=== PATIENT | female | born 1940 | race Caucasian/White ===

== ENCOUNTER 2022-09-30 06:06 | Emergency (ER) | payer MEDICARE, OTHER ==
[2022-09-30] MEDS ORDERED: amLODIPine 5 MG (NORVASC) TAB PO ONE (06:45)
[2022-09-30] MEDS ORDERED: TETANUS,DIPTH,PERTUSS P/F (BOOSTRIX) 0.5 ML VIAL IM ONE (06:45)
[2022-09-30 07:06] LABS: BASOPHILS # (AUTO) 0.1 10^3/uL (0.0-0.1); BASOPHILS % (AUTO) 1 % (0-10); EOSINOPHILS # (AUTO) 0.2 10^3/uL (0.0-0.3); EOSINOPHILS % (AUTO) 3 % (0-10); HEMATOCRIT 39 % (35-52); LYMPHOCYTES # (AUTO) 1.1 10^3/uL (1.0-4.0); LYMPHOCYTES % (AUTO) 22 % (12-44); MEAN CORPUSCULAR HEMOGLOBIN 31 pg (25-34); MEAN CORPUSCULAR HGB CONC 33 g/dL (32-36); MEAN CORPUSCULAR VOLUME 94 fL (80-99); MONOCYTES # (AUTO) 0.5 10^3/uL (0.0-1.0); MONOCYTES % (AUTO) 10 % (0-12); NEUTROPHILS # (AUTO) 3.2 10^3/uL (1.8-7.8); NEUTROPHILS % (AUTO) 64 % (42-75); PLATELET COUNT 188 10^3/uL (130-400)
[2022-09-30 07:08] LABS: BILIRUBIN,URINE NEGATIVE (NEGATIVE); CLARITY,URINE CLEAR; COLOR,URINE YELLOW; GLUCOSE, URINE (UA) NEGATIVE (NEGATIVE); KETONES,URINE NEGATIVE (NEGATIVE); LEUKOCYTE ESTERASE ,URINE NEGATIVE (NEGATIVE); NITRITE,URINE NEGATIVE (NEGATIVE); PH,URINE 7.5 (5-9); PROTEIN,URINE NEGATIVE (NEGATIVE)
[2022-09-30 07:14] LABS: POTASSIUM 3.9 MMOL/L (3.6-5.0)
[2022-09-30 07:15] LABS: CALCIUM 9.2 MG/DL (8.5-10.1)
[2022-09-30 07:16] LABS: TOTAL PROTEIN 6.6 GM/DL (6.4-8.2)
[2022-09-30 07:16] LABS: BACTERIA,URINE NEGATIVE /HPF
[2022-09-30 07:18] LABS: BILIRUBIN,TOTAL 0.9 MG/DL (0.1-1.0)
[2022-09-30 07:20] LABS: CREATININE SERUM 0.77 MG/DL (0.60-1.30)
[2022-09-30 07:23] LABS: MAGNESIUM 2.2 MG/DL (1.6-2.4)
--- NOTE | 2022-09-30 07:29 | Diagnostic Imaging Report ---
EXAMINATION: CT head and CT cervical spine without contrast. TECHNIQUE: Multiple contiguous axial images were obtained through the brain and cervical spine without the use of intravenous contrast. Sagittal and coronal reformations through the cervical spine were then performed. All CT scans use one or more of the following dose optimizing techniques: automated exposure control, MA and/or KvP adjustment based on patient size and exam type or iterative reconstruction. HISTORY: Head and neck pain after injury. COMPARISON: None available. FINDINGS: HEAD: Mild diffuse cerebral volume loss with proportional enlargement of the ventricles and sulci. Moderate hypodensities throughout the supratentorial white matter of both cerebral hemispheres. No acute intracranial hemorrhage or abnormal extra-axial fluid collections are present. Calcification of the intracranial ICAs. No hyperdense vessel. The calvarium is intact. The mastoid air cells are clear. The visualized paranasal sinuses are clear. The orbits are normal. C-SPINE: Vertebral body height and alignment are preserved. No acute fracture, dislocation, or destructive osseous process. There is multilevel facet hypertrophy without perched facets. There is multilevel cervical spondylosis. The paraspinous soft tissues are normal. The visualized thyroid gland is normal. The visualized lung apices are normal. IMPRESSION: 1. No acute intracranial abnormality. Chronic microangiopathy and volume loss. 2. Degenerative changes of the cervical spine without acute osseous abnormality. Dictated by: Dictated on workstation # [email or web address] - It's what's in [id number]
--- NOTE | 2022-09-30 07:37 | ED Fall/Injury ---
General Chief Complaint: Trauma-Non Activation Stated Complaint: FALL - L EYE LAC - L SHOULDER PAIN Nursing Triage Note: PT AMBULATORY INTO ER VIA PRIVATE VEHICLE FROM [facility]. PATIENT WAS SITTING ON COUCH AND WENT TO GET UP AND FELL FORWARD HITTING TABLE. PATIENT HAS SMALL LACERATION JUST ABOVE LEFT EYE, AND IS ALSO COMPLAINING OF LEFT KNEE AND SHOULDER PAIN. NO LOSS OF CONSCIOUSNESS. PT IS NOT ON BLOOD THINNERS. 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 oz. kg; BMI Method: Progress/Results/Core Measures Results/Orders Lab Results Laboratory Tests Test 09/30/22 06:54 09/30/22 06:56 Range/Units White Blood Count 5.0 4.3-11.0 10^3/uL Red Blood Count 4.15 3.80-5.11 10^6/uL Hemoglobin 13.0 11.5-16.0 g/dL Hematocrit 39 35-52 % Mean Corpuscular Volume 94 80-99 fL Mean Corpuscular Hemoglobin 31 25-34 pg Mean Corpuscular Hemoglobin Concent 33 32-36 g/dL Red Cell Distribution Width 12.8 10.0-14.5 % Platelet Count 188 130-400 10^3/uL Mean Platelet Volume 10.0 9.0-12.2 fL Immature Granulocyte % (Auto) 0 % Neutrophils (%) (Auto) 64 42-75 % Lymphocytes (%) (Auto) 22 12-44 % Monocytes (%) (Auto) 10 0-12 % Eosinophils (%) (Auto) 3 0-10 % Basophils (%) (Auto) 1 0-10 % Neutrophils # (Auto) 3.2 1.8-7.8 10^3/uL Lymphocytes # (Auto) 1.1 1.0-4.0 10^3/uL Monocytes # (Auto) 0.5 0.0-1.0 10^3/uL Eosinophils # (Auto) 0.2 0.0-0.3 10^3/uL Basophils # (Auto) 0.1 0.0-0.1 10^3/uL Immature Granulocyte # (Auto) 0.0 0.0-0.1 10^3/uL Sodium Level 144 135-145 MMOL/L Potassium Level 3.9 3.6-5.0 MMOL/L Chloride Level 107 98-107 MMOL/L Carbon Dioxide Level 25 21-32 MMOL/L Anion Gap 12 5-14 MMOL/L Blood Urea Nitrogen 16 7-18 MG/DL Creatinine 0.77 0.60-1.30 MG/DL Estimat Glomerular Filtration Rate 76 BUN/Creatinine Ratio 21 Glucose Level 90 70-105 MG/DL Calcium Level 9.2 8.5-10.1 MG/DL Corrected Calcium 9.2 8.5-10.1 MG/DL Magnesium Level 2.2 1.6-2.4 MG/DL Total Bilirubin 0.9 0.1-1.0 MG/DL Aspartate Amino Transf (AST/SGOT) 15 5-34 U/L Alanine Aminotransferase (ALT/SGPT) 9 0-55 U/L Alkaline Phosphatase 75 40-136 U/L Total Protein 6.6 6.4-8.2 GM/DL Albumin 4.0 3.2-4.5 GM/DL Urine Color YELLOW Urine Clarity CLEAR Urine pH 7.5 5-9 Urine Specific [place] 1.010 L 1.016-1.022 Urine Protein NEGATIVE NEGATIVE Urine Glucose (UA) NEGATIVE NEGATIVE Urine Ketones NEGATIVE NEGATIVE Urine Nitrite NEGATIVE NEGATIVE Urine Bilirubin NEGATIVE NEGATIVE Urine Urobilinogen 0.2 < = 1.0 MG/DL Urine Leukocyte Esterase NEGATIVE NEGATIVE Urine RBC (Auto) NEGATIVE NEGATIVE Urine RBC NONE /HPF Urine WBC NONE /HPF Urine Squamous Epithelial Cells NONE /HPF Urine Crystals NONE /LPF Urine Bacteria NEGATIVE /HPF Urine Casts NONE /LPF Urine Mucus NEGATIVE /LPF Urine Culture Indicated NO My Orders Orders - EVE LINDSEY MD Shoulder, Left, 3 Views (09/30/22 06:38) Knee, Right, 3 Views (09/30/22 06:38) Ct Head/Cervical Spine Wo (09/30/22 06:38) Cbc With Automated Diff (09/30/22 06:38) Comprehensive Metabolic Panel (09/30/22 06:38) Magnesium (09/30/22 06:38) Ua Culture If Indicated (09/30/22 06:38) Dipht,Pertuss(Acell),Tet Adult (Boostrix (09/30/22 06:45) Medications Given in ED Current Medications Medications Dose Ordered Sig/Abbey Route Start Time Stop Time Status Last Admin Dose Admin Diphtheria/ Tetanus/Acell Pertussis 0.5 ml ONCE ONCE IM 09/30/22 06:45 09/30/22 06:46 DC 09/30/22 07:33 0.5 ML Vital Signs/I&O 09/30/22 09/30/22 06:14 07:18 Pulse 80 80 Resp 18 18 B/P (MAP) 198/100 (132) 198/100 (132) Pulse Ox 97 97 O2 Delivery Room Air Room Air Blood Pressure Mean: 132 Diagnostic Imaging Diagonstic Imaging: CT Plain Films/CT/US/NM/MRI: c-spine, head Comments CT head and C-spine viewed by me and report reviewed. See report below: NAME: SAGRARIO BOBO I [facility] REC#: [id number] PT STATUS: REG ER : 1940 PHYSICIAN: EVE LINDSEY MD ADMIT DATE: 09/30/22/ER Draft Date of Exam:09/30/22 CT HEAD/CERVICAL SPINE WO EXAMINATION: CT head and CT cervical spine without contrast. TECHNIQUE: Multiple contiguous axial images were obtained through the brain and cervical spine without the use of intravenous contrast. Sagittal and coronal reformations through the cervical spine were then performed. All CT scans use one or more of the following dose optimizing techniques: automated exposure control, MA and/or KvP adjustment based on patient size and exam type or iterative reconstruction. HISTORY: Head and neck pain after injury. COMPARISON: None available. FINDINGS: HEAD: Mild diffuse cerebral volume loss with proportional enlargement of the ventricles and sulci. Moderate hypodensities throughout the supratentorial white matter of both cerebral hemispheres. No acute intracranial hemorrhage or abnormal extra-axial fluid collections are present. Calcification of the intracranial ICAs. No hyperdense vessel. The calvarium is intact. The mastoid air cells are clear. The visualized paranasal sinuses are clear. The orbits are normal. C-SPINE: Vertebral body height and alignment are preserved. No acute fracture, dislocation, or destructive osseous process. There is multilevel facet hypertrophy without perched facets. There is multilevel cervical spondylosis. The paraspinous soft tissues are normal. The visualized thyroid gland is normal. The visualized lung apices are normal. IMPRESSION: 1. No acute intracranial abnormality. Chronic microangiopathy and volume loss. 2. Degenerative changes of the cervical spine without acute osseous abnormality. Dictated on workstation # [id number] Dict: 09/30/22725 Trans: 09/30/22728 CV [id number] Interpreted by: MANUEL DANGELO DO Departure Impression Primary Impression: Fall on same level Qualified Codes: W18.30XA - Fall on same level, unspecified, initial encounter Additional Impressions: Facial abrasion Qualified Codes: S00.81XA - Abrasion of other part of head, initial encounter Left shoulder pain Qualified Codes: M25.512 - Pain in left shoulder Right knee pain Qualified Codes: M25.561 - Pain in right knee Hypertension Qualified Codes: I10 - Essential (primary) hypertension Disposition: 01 HOME, SELF-CARE Condition: Improved Departure-Patient Inst. Decision time for Depature: 08:19 Referrals: PEYTON HERRERA DO (PCP/Family) Primary Care Physician Patient Instructions: High Blood Pressure ED, Preventing Falls in Older Adults Add. Discharge Instructions: Please follow-up with your primary care provider regarding pain from your injuries today and unsteadiness. Please schedule an appointment as soon as possible. Monitor blood pressure today. Check once this morning and again this afternoon. If systolic blood pressure remains above 160 or diastolic pressure above 100, please contact your primary care provider or return to the emergency room. Return to the emergency room if there are any other worsening conditions. Imaging studies and labs were unremarkable today. Use Tylenol (acetaminophen) up to 1000 mg every 6 hours as needed for pain. Sore areas may be iced and 20-minute intervals as well. All discharge instructions reviewed with patient and/or family. Voiced understanding. EVE LINDSEY MD Sep 30, 2022 07:37
--- NOTE | 2022-09-30 07:48 | Diagnostic Imaging Report ---
EXAMINATION: Right knee radiograph EXAM DATE: 09/30/2022 7:34 AM COMPARISON: None available. HISTORY: Right knee pain TECHNIQUE: 3 views FINDINGS: There is no acute fracture, dislocation, or destructive osseous process. There is severe medial compartment joint space narrowing and small osteophytes. The soft tissues are normal. IMPRESSION: 1. Degenerative changes of the medial compartment of the right knee without acute osseous abnormality. Dictated by: Dictated on workstation # [id number]
--- NOTE | 2022-09-30 07:51 | Diagnostic Imaging Report ---
EXAMINATION: Left shoulder radiograph EXAM DATE: 09/30/2022 7:34 AM COMPARISON: None available. HISTORY: Left shoulder pain TECHNIQUE: 3 views FINDINGS: There is no acute fracture, dislocation, or destructive osseous process. The joint spaces are normal. The soft tissues are normal. IMPRESSION: 1. No acute osseous abnormality. Dictated by: Dictated on workstation # [id number]
[2022-09-30 08:31] VITALS: BP 176/97
== END 2022-09-30 08:31 | disposition home or self-care (01) ==
LOC: ER 06:08
DX: S00.81XA Abrasion of other part of head, initial encounter (principal); M25.512 Pain in left shoulder; M25.561 Pain in right knee; I10 Essential (primary) hypertension; Z23 Encounter for immunization; W18.30XA Fall on same level, unspecified, initial encounter; W22.8XXA Striking against or struck by other objects, initial encounter
CPT/HCPCS: 36415; 70450; 72125; 73030; 73562; 80053; 81000; 83735; 85025; 90715

== ENCOUNTER 2023-05-17 03:19 | Emergency (ER) | payer MEDICARE ==
[~2023-05-17] VITALS: Ht 167.7 cm; Wt 77.1 kg
[2023-05-17 03:19] VITALS: BP 163/105
--- NOTE | 2023-05-17 05:40 | ED Fall/Injury ---
General Chief Complaint: Trauma-Non Activation Stated Complaint: FALL Nursing Triage Note: PT TO RM 6 VIA [facility] FROM [facility]. PT FELL OUT OF BED AND HIT FACE ON ROCKING CHAIR AT APPROX 0227 THIS AM, UNWITNESSED FALL. PT DENIES PAIN, A&OX4. Source: patient Exam Limitations: no limitations (EVE LINDSEY MD) History of Present Illness Date Seen by Provider: May 17, 2023 Time Seen by Provider: 03:22 Initial Comments This 83-year-old woman presents to the emergency room via [facility] from [facility] after having an unwitnessed fall. Patient is unsure of what caused the fall and is not certain of what she struck her head on. She does have bruising and swelling of the nose. She has dried blood in and around her nose. She is alert and oriented. She is able to briskly answer questions appropriately. She denies any injury elsewhere. Staff reports she is up-to-date on immunizations Location Injury Occurred: [facility] (EVE LINDSEY MD) Allergies and Home Medications Allergies Coded Allergies: No Known Drug Allergies (Unverified , 09/30/22) Patient Home Medication List Home Medication List Reviewed: Yes (EVE LINDSEY MD) Review of Systems Review of Systems Constitutional: no symptoms reported Eyes: No Symptoms Reported Ears, Nose, Mouth, Throat: see HPI Respiratory: no symptoms reported Cardiovascular: no symptoms reported Gastrointestinal: no symptoms reported Genitourinary: no symptoms reported Musculoskeletal: no symptoms reported Skin: no symptoms reported Psychiatric/Neurological: No Symptoms Reported (EVE LINDSEY MD) Past Zvrtauo-Kfavjg-Uayqqr Hx Patient Social History Tobacco Use?: No Use of E-Cig and/or Vaping dev: No Substance use?: No Alcohol Use?: No (EVE LINDSEY MD) Past Medical History Surgeries: No (Unknown) Respiratory: No Cardiac: Yes Hypertension Neurological: Yes Dementia Genitourinary: No Gastrointestinal: No Musculoskeletal: No Endocrine: No HEENT: No Cancer: No Psychosocial: No Integumentary: No (EVE LINDSEY MD) Physical Exam Vital Signs Vital Signs - First Documented 05/17/23 03:19 Temp 36.7 Pulse 89 Resp 18 B/P (MAP) 163/105 (124) Pulse Ox 95 O2 Delivery Room Air (ELAN HAIR MD) Vital Signs Capillary Refill : Less Than 3 Seconds (EVE LINDSEY MD) Height, Weight, BMI Height: '" Weight: lbs. oz. kg; 27.00 BMI Method: General Appearance: WD/WN, no apparent distress HEENT: PERRL/EOMI, normal ENT inspection, other (Epistaxis without septal h ematoma. Dried blood in the naris without active bleeding. Swelling and ecchymosis of the nose.) Neck: non-tender, normal inspection Cardiovascular: regular rate, rhythm, no edema, no murmur Respiratory: lungs clear, normal breath sounds, no respiratory distress Gastrointestinal: normal bowel sounds, non tender, soft Extremities: non-tender, normal inspection, no pedal edema Neurologic/Psychiatric: alert, normal mood/affect, oriented x 3 Skin: normal color, ecchymosis (EVE LINDSEY MD) Hope Coma Score Best Eye Response: (4) Open Spontaneously Best Verbal Response: (5) Oriented Best Motor Response: (6) Obeys Commands Hope Total: 15 (EVE LINDSEY MD) Progress/Results/Core Measures Results/Orders Lab Results Laboratory Tests Test 05/17/23 05:44 05/17/23 05:46 Range/Units Urine Color YELLOW Urine Clarity CLEAR Urine pH 6.5 5-9 Urine Specific [place] 1.010 L 1.016-1.022 Urine Protein NEGATIVE NEGATIVE Urine Glucose (UA) NEGATIVE NEGATIVE Urine Ketones NEGATIVE NEGATIVE Urine Nitrite NEGATIVE NEGATIVE Urine Bilirubin NEGATIVE NEGATIVE Urine Urobilinogen 0.2 < = 1.0 MG/DL Urine Leukocyte Esterase 1+ H NEGATIVE Urine RBC (Auto) NEGATIVE NEGATIVE Urine RBC NONE /HPF Urine WBC 0-2 /HPF Urine Squamous Epithelial Cells RARE /HPF Urine Crystals NONE /LPF Urine Bacteria TRACE /HPF Urine Casts PRESENT /LPF Urine Hyaline Casts RARE /LPF Urine Mucus NEGATIVE /LPF Urine Culture Indicated NO White Blood Count 9.7 4.3-11.0 10^3/uL Red Blood Count 4.53 3.80-5.11 10^6/uL Hemoglobin 14.4 11.5-16.0 g/dL Hematocrit 44 35-52 % Mean Corpuscular Volume 97 80-99 fL Mean Corpuscular Hemoglobin 32 25-34 pg Mean Corpuscular Hemoglobin Concent 33 32-36 g/dL Red Cell Distribution Width 12.7 10.0-14.5 % Platelet Count 235 130-400 10^3/uL Mean Platelet Volume 10.7 9.0-12.2 fL Immature Granulocyte % (Auto) 0 % Neutrophils (%) (Auto) 76 H 42-75 % Lymphocytes (%) (Auto) 15 12-44 % Monocytes (%) (Auto) 7 0-12 % Eosinophils (%) (Auto) 2 0-10 % Basophils (%) (Auto) 1 0-10 % Neutrophils # (Auto) 7.3 1.8-7.8 10^3/uL Lymphocytes # (Auto) 1.5 1.0-4.0 10^3/uL Monocytes # (Auto) 0.7 0.0-1.0 10^3/uL Eosinophils # (Auto) 0.2 0.0-0.3 10^3/uL Basophils # (Auto) 0.1 0.0-0.1 10^3/uL Immature Granulocyte # (Auto) 0.0 0.0-0.1 10^3/uL Prothrombin Time 12.7 12.2-14.7 SEC INR Comment 0.9 0.8-1.4 Activated Partial Thromboplast Time 29 24-35 SEC Sodium Level 143 135-145 MMOL/L Potassium Level 4.4 3.6-5.0 MMOL/L Chloride Level 109 H 98-107 MMOL/L Carbon Dioxide Level 25 21-32 MMOL/L Anion Gap 9 5-14 MMOL/L Blood Urea Nitrogen 21 H 7-18 MG/DL Creatinine 0.84 0.60-1.30 MG/DL Estimat Glomerular Filtration Rate 68 BUN/Creatinine Ratio 25 Glucose Level 98 70-105 MG/DL Calcium Level 8.9 8.5-10.1 MG/DL Corrected Calcium 8.7 8.5-10.1 MG/DL Total Bilirubin 0.5 0.1-1.0 MG/DL Aspartate Amino Transf (AST/SGOT) 13 5-34 U/L Alanine Aminotransferase (ALT/SGPT) 6 0-55 U/L Alkaline Phosphatase 80 40-136 U/L Total Protein 6.8 6.4-8.2 GM/DL Albumin 4.2 3.2-4.5 GM/DL (ELAN HAIR MD) My Orders Orders - ELAN HAIR MD Labetalol Injection (Normodyne Injection (05/17/23 06:45) (ELAN HAIR MD) Medications Given in ED Current Medications Medications Dose Ordered Sig/Abbey Route Start Time Stop Time Status Last Admin Dose Admin Labetalol HCl 20 mg ONCE ONCE IV 05/17/23 06:45 05/17/23 06:46 DC 05/17/23 06:46 20 MG (ELAN HAIR MD) Vital Signs/I&O 05/17/23 03:19 Temp 36.7 Pulse 89 Resp 18 B/P (MAP) 163/105 (124) Pulse Ox 95 O2 Delivery Room Air (ELAN HAIR MD) Blood Pressure Mean: 124 Progress Progress Note #1: Time: 05:[address] was viewed by me. I appreciated a nasal fracture but no acute intracranial injury. However, I received a call from the radiologist at 05:12 with report that there was a trace left parietal subarachnoid hemorrhage. I discussed options with the patient. She stated she may want to proceed with surgery if needed should she decompensate. We are therefore pursuing transfer to a neurosurgical facility. [facility] does not have neurosurgical capability through the weekend. I am now trying [facility]. Patient remains neurologically intact. Progress Note #2: Time: 05:50 Progress Note I spoke with Dr. Giles, neurosurgeon at [facility] in [place]. He accepts the case in consultation. Patient will be transferred to the emergency room. (EVE LINDSEY MD) Progress Note : Progress Note 0645: Patient pending transfer for possible small subarachnoid hemorrhage. BP is 170s systolic so we will go ahead and initiate labetalol 20 mg IV now. Patient does have some confusion but otherwise is resting comfortably. 0715: Our radiologist have read the films and do not appreciate any significant subarachnoid hemorrhage. I have reviewed the films myself and I also do not appreciate any significant intracranial hemorrhage. I did speak with patient's daughter who is the DPOA and we discussed the radiology findings. Patient does have advancing dementia. Daughter would not want a surgical option for this patient. Patient does get paranoid and also gets confused and upset outside of her normal environment. Given that the findings are not significant for significant hemorrhage of any sort and that she would not want surgery, further transfer and neurosurgical evaluation are not indicated. Overall the daughter is comfortable with the patient going back to the facility and so am I and we will talk with the facility director about this. 0721: Facility director has been notified and agrees. Patient will go back to facility and resume current medications and care. [facility] has been notified of cancellation of transfer status. Discharged back to facility with return precautions given to facility provider relations representative. Patient's daughter agrees to plan. Daughter is aware of the mild nasal bone fracture. (ELAN HAIR MD) Diagnostic Imaging Diagonstic Imaging: CT Plain Films/CT/US/NM/MRI: facial bones, head Comments CT head and facial bones viewed by me. I appreciated the nasal fracture. I received a call from the radiologist reporting a trace subarachnoid hemorrhage in the left parietal region. This was appreciated on my further review of the imaging. Nasal fractures were noted. No other acute abnormalities were appreciated. (EVE LINDSEY MD) Diagonstic Imaging: CT Plain Films/CT/US/NM/MRI: facial bones, head Comments [facility] [place] NAME: SAGRARIO BOBO I [facility] REC#: [id number] PT STATUS: REG ER : 1940 PHYSICIAN: EVE LINDSEY MD ADMIT DATE: 05/17/23/ER Draft Date of Exam:05/17/23 CT HEAD/MAXILLOFACIAL WO EXAMINATION: CT head and face without contrast. TECHNIQUE: Multiple contiguous axial images were obtained through the face and brain without the use of intravenous contrast. All CT scans use one or more of the following dose optimizing techniques: automated exposure control, MA and/or KvP adjustment based on patient size and exam type or iterative reconstruction. HISTORY: Head and face injury. COMPARISON: None available. FINDINGS: The traore-white matter differentiation is normal. No mass effect or midline shift. There is age related cerebral atrophy with ex vacuo dilation of the ventricles. Periventricular white matter hypoattenuation is in keeping with chronic small vessel ischemic changes. Basilar cisterns are patent. There are no intra- or extra-axial fluid collections. There is no intracranial hemorrhage. The orbits are normal. Paranasal sinuses are normal. Mastoid air cells are clear. No soft tissue abnormality is seen. No osseus lesions or fractures are seen. There is an mildly impacted nasal bone fracture. Mandible and maxillae are normal. Zygomatic arches are normal. Pterygoid plates are normal. No soft tissue abnormality is seen. IMPRESSION: 1. No acute intracranial abnormality. 2. Mildly impacted nasal bone fracture. Dictated on workstation # [id number] Dict: 05/17/23 0608 Trans: 05/17/23 0654 [id number] Interpreted by: DEEPTI HONG MD Electronically signed by: (ELAN HAIR MD) Departure Impression Primary Impression: Head injury Qualified Codes: S09.90XA - Unspecified injury of head, initial encounter Additional Impressions: Fall on same level Qualified Codes: W18.30XA - Fall on same level, unspecified, initial encounter Nasal fracture Qualified Codes: S02.2XXA - Fracture of nasal bones, initial encounter for closed fracture Disposition: 01 HOME, SELF-CARE Condition: Stable Departure-Patient Inst. Decision time for Depature: 07:25 (ELAN HAIR MD) Referrals: YASMIN WARE MD, JACQUELINE S DO (PCP/Family) Primary Care Physician Patient Instructions: Head Injury in Adults (DC), Nose fracture Add. Discharge Instructions: All discharge instructions reviewed with patient and/or family. Voiced understanding. You may follow-up with your doctor for recheck and further evaluation this week. There is a mild nasal fracture. Due to this, you may follow-up with Dr. Ware for recheck and further evaluation as needed. This should heal up on its own without difficulty as well. Continue home medications as previously prescribed. Continue previous diet. Return for worse pain, vomiting, vision or balance problems, significant change in mental status or other concerns as needed. EVE LINDSEY MD May 17, 2023 05:40 ELAN HAIR MD May 17, 2023 07:17
[2023-05-17 05:52] LABS: BASOPHILS # (AUTO) 0.1 10^3/uL (0.0-0.1); BASOPHILS % (AUTO) 1 % (0-10); EOSINOPHILS # (AUTO) 0.2 10^3/uL (0.0-0.3); EOSINOPHILS % (AUTO) 2 % (0-10); HEMATOCRIT 44 % (35-52); HEMOGLOBIN 14.4 g/dL (11.5-16.0); LYMPHOCYTES # (AUTO) 1.5 10^3/uL (1.0-4.0); LYMPHOCYTES % (AUTO) 15 % (12-44); MEAN CORPUSCULAR HEMOGLOBIN 32 pg (25-34); MEAN CORPUSCULAR HGB CONC 33 g/dL (32-36); MEAN CORPUSCULAR VOLUME 97 fL (80-99); MEAN PLATELET VOLUME 10.7 fL (9.0-12.2); MONOCYTES # (AUTO) 0.7 10^3/uL (0.0-1.0); MONOCYTES % (AUTO) 7 % (0-12); NEUTROPHILS # (AUTO) 7.3 10^3/uL (1.8-7.8); NEUTROPHILS % (AUTO) 76 % (42-75); PLATELET COUNT 235 10^3/uL (130-400); WHITE BLOOD COUNT 9.7 10^3/uL (4.3-11.0)
[2023-05-17 05:53] LABS: BILIRUBIN,URINE NEGATIVE (NEGATIVE); CLARITY,URINE CLEAR; COLOR,URINE YELLOW; GLUCOSE, URINE (UA) NEGATIVE (NEGATIVE); KETONES,URINE NEGATIVE (NEGATIVE); LEUKOCYTE ESTERASE ,URINE 1+ (NEGATIVE); NITRITE,URINE NEGATIVE (NEGATIVE); PH,URINE 6.5 (5-9); PROTEIN,URINE NEGATIVE (NEGATIVE)
[2023-05-17 06:14] LABS: INR 0.9 (0.8-1.4); PROTHROMBIN TIME PATIENT 12.7 SEC (12.2-14.7)
[2023-05-17 06:17] LABS: BACTERIA,URINE TRACE /HPF; HYALINE CASTS, URINE RARE /LPF; SQUAMOUS EPITHELIAL CELL,UR RARE /HPF; WBC,URINE 0-2 /HPF
[2023-05-17 06:25] LABS: ALBUMIN 4.2 GM/DL (3.2-4.5); POTASSIUM 4.4 MMOL/L (3.6-5.0)
[2023-05-17 06:26] LABS: CALCIUM 8.9 MG/DL (8.5-10.1)
[2023-05-17 06:27] LABS: TOTAL PROTEIN 6.8 GM/DL (6.4-8.2)
[2023-05-17 06:29] LABS: BILIRUBIN,TOTAL 0.5 MG/DL (0.1-1.0)
[2023-05-17 06:31] LABS: CREATININE SERUM 0.84 MG/DL (0.60-1.30)
[2023-05-17] MEDS ORDERED: LABETALOL HCL 20 MG/4 ML VIAL IV ONE (06:45)
--- NOTE | 2023-05-17 06:54 | Diagnostic Imaging Report ---
EXAMINATION: CT head and face without contrast. TECHNIQUE: Multiple contiguous axial images were obtained through the face and brain without the use of intravenous contrast. All CT scans use one or more of the following dose optimizing techniques: automated exposure control, MA and/or KvP adjustment based on patient size and exam type or iterative reconstruction. HISTORY: Head and face injury. COMPARISON: None available. FINDINGS: The traore-white matter differentiation is normal. No mass effect or midline shift. There is age related cerebral atrophy with ex vacuo dilation of the ventricles. Periventricular white matter hypoattenuation is in keeping with chronic small vessel ischemic changes. Basilar cisterns are patent. There are no intra- or extra-axial fluid collections. There is no intracranial hemorrhage. The orbits are normal. Paranasal sinuses are normal. Mastoid air cells are clear. No soft tissue abnormality is seen. No osseus lesions or fractures are seen. There is an mildly impacted nasal bone fracture. Mandible and maxillae are normal. Zygomatic arches are normal. Pterygoid plates are normal. No soft tissue abnormality is seen. IMPRESSION: 1. No acute intracranial abnormality. 2. Mildly impacted nasal bone fracture. Dictated by: Dictated on workstation # [id number]
== END 2023-05-17 07:42 | disposition home or self-care (01) ==
LOC: EDUNIT# 03:19 → ER 03:22
DX: S09.90XA Unspecified injury of head, initial encounter (principal); S02.2XXA Fracture of nasal bones, initial encounter for closed fracture; W06.XXXA Fall from bed, initial encounter; W22.03XA Walked into furniture, initial encounter; Y92.129 Unspecified place in nursing home as the place of occurrence of the external cause
CPT/HCPCS: 36415; 70450; 70486; 80053; 81000; 85025; 85610; 85730

== ENCOUNTER 2023-07-27 18:05 | Observation (INO) | payer MEDICARE ==
[~2023-07-27] VITALS: Ht 172 cm; Wt 65.3 kg
[2023-07-27 18:34] LABS: BASOPHILS % (AUTO) 0 % (0-10); EOSINOPHILS % (AUTO) 0 % (0-10); HEMATOCRIT 40 % (35-52); HEMOGLOBIN 13.1 g/dL (11.5-16.0); LYMPHOCYTES # (AUTO) 0.5 10^3/uL (1.0-4.0); LYMPHOCYTES % (AUTO) 11 % (12-44); MEAN CORPUSCULAR HEMOGLOBIN 31 pg (25-34); MEAN CORPUSCULAR HGB CONC 32 g/dL (32-36); MEAN CORPUSCULAR VOLUME 97 fL (80-99); MEAN PLATELET VOLUME 11.3 fL (9.0-12.2); MONOCYTES # (AUTO) 0.5 10^3/uL (0.0-1.0); MONOCYTES % (AUTO) 10 % (0-12); NEUTROPHILS # (AUTO) 3.4 10^3/uL (1.8-7.8); NEUTROPHILS % (AUTO) 78 % (42-75); PLATELET COUNT 155 10^3/uL (130-400); WHITE BLOOD COUNT 4.4 10^3/uL (4.3-11.0)
[2023-07-27 18:49] LABS: PROTHROMBIN TIME PATIENT 13.5 SEC (12.2-14.7)
--- NOTE | 2023-07-27 18:54 | ED General ---
General Chief Complaint: Neuro-Stroke Like Symptoms Stated Complaint: ALTERED MENTAL STATUS Nursing Triage Note: ARRIVED VIA EMS FROM [facility]. STAFF FOUND HER UNRESPONSIVE ON THE COUCH. UNKNOWN DOWN TIME. UPON ARRIVAL PT IS COOL TO TOUCH. RESPONDS TO PAINFUL STIMULI. PT SHIRT TO NECK AND PANTS COVERED IN URINE. PT HAS LARGE AMOUNT OF LIQUID STOOL IN PANTS. EMS REPORTS BLOOD SUGAR IN 180'S. ALSO STATES HER PULSE OX ON ROOM AIR WAS IN THE 80'S. Source of Information: Patient Exam Limitations: No Limitations History of Present Illness Date Seen by Provider: Jul 27, 2023 Time Seen by Provider: 18:10 Initial Comments This 83-year-old woman presents to the emergency room via EMS from [facility] with an unresponsive episode. There are conflicting reports regarding what occurred at the home. EMS reported she was found on the couch with unknown downtime. Staff reports that she actually was alert this morning and took morni ng, noon, and afternoon medications and then went to the dinner table. Staff reported that the unresponsive episode occurred at the dinner table somewhere around 17:15. She received her evening medications including Seroquel and Zyprexa around 1600. Patient is minimally responsive on arrival. She does spontaneously move her extremities some. She does not respond to voice or in structions but does respond to pressure stimuli. Staff reports she has been intermittently having some episodes of decreased responsiveness generally lasting less than 1 hour, but not to this extent. Patient is noted to be hypotensive with initial blood pressure of 85/54. IV fluids are infusing on arrival. She is heavily soiled with stool and urine. There have been known exposures to COVID-19 and influenza B in the home. She is afebrile. Fingerstick blood sugar for EMS was 184. Staff eventually reports that patient has a DNR order which they are faxing to the hospital. Oxygen saturation on room air was initially in the low 80s but resuscitated well with nasal cannula at 3 or 4 L/min. Staff additionally reported that she had a isolated elevated temperature of 100.1 F a couple of days ago. She also has been incontinent over the past couple of days which is not usual for her. Allergies and Home Medications Allergies Coded Allergies: No Known Drug Allergies (Unverified , 09/30/22) Patient Home Medication List Home Medication List Reviewed: Yes Acetaminophen (Tylenol) 325 Mg Tablet, 650 MG PO BID, (Reported) Entered as Reported by: KAT MELCHOR on 07/29/231552 Last Action: Reviewed Amlodipine Besylate (Amlodipine Besylate) 5 Mg Tablet, 5 MG PO DAILY, (Reported) Entered as Reported by: ANTONELLA PIÑA on 07/29/231357 Last Action: Reviewed Cyanocobalamin (Vitamin B-12) (Vitamin B-12) 1,000 Mcg Tablet, 1,000 MCG PO DAILY, (Reported) Entered as Reported by: KAT MELCHOR on 07/29/231552 Last Action: Reviewed Lactulose (Constulose) 10 Gram/15 Ml Solution, 15 ML PO BID, (Reported) Entered as Reported by: KAT MELCHOR on 07/29/231552 Last Action: Reviewed Olanzapine (Olanzapine) 2.5 Mg Tablet, 2.5 MG PO BID, (Reported) Entered as Reported by: KAT MELCHOR on 07/29/231552 Last Action: Reviewed Olmesartan Medoxomil (Olmesartan Medoxomil) 20 Mg Tablet, 20 MG PO DAILY, (Reported) Entered as Reported by: ANTONELLA PIÑA on 07/29/231357 Last Action: Reviewed Polyethylene Glycol 3350 (Miralax) 17 Gram Powd.pack, 17 GM PO DAILY PRN for CONSTIPATION-2ND LINE, (Reported) Entered as Reported by: KAT MELCHOR on 07/29/231552 Last Action: Reviewed Quetiapine Fumarate (Quetiapine Fumarate) 25 Mg Tablet, 25 MG PO TID, (Reported) Entered as Reported by: ANTONELLA PIÑA on 07/29/231357 Last Action: Reviewed Venlafaxine HCl (Venlafaxine HCl) 75 Mg Tab, 75 MG PO DAILY, (Reported) Entered as Reported by: ANTONELLA PIÑA on 07/29/231357 Last Action: Reviewed Discontinued Medications Olanzapine (Olanzapine) 5 Mg Tablet, 2.5 MG PO BID, (Reported) Discontinued Reason: Duplicate Order Entered as Reported by: ANTONELLA PIÑA on 07/29/231357 Last Action: Discontinued Review of Systems Review of Systems Constitutional: see HPI EENTM: no symptoms reported Respiratory: see HPI Cardiovascular: see HPI Gastrointestinal: no symptoms reported Genitourinary: no symptoms reported : No Musculoskeletal: no symptoms reported Skin: no symptoms reported Psychiatric/Neurological: See HPI Hematologic/Lymphatic: No Symptoms Reported Immunological/Allergic: no symptoms reported Past Shvmfce-Vihzvb-Vkzgwo Hx Patient Social History Tobacco Use?: No Use of E-Cig and/or Vaping dev: No Substance use?: No Alcohol Use?: No Past Medical History Surgeries: No (Unknown) Respiratory: No Cardiac: Yes Hypertension Neurological: Yes Dementia Genitourinary: No Gastrointestinal: No Musculoskeletal: No Endocrine: No HEENT: No Cancer: No Psychosocial: No Integumentary: No Physical Exam-Suspected Sepsis Physical Exam Vital Signs Vital Signs - First Documented 07/27/23 07/30/23 18:05 10:30 Temp 36.0 Pulse 73 Resp 16 B/P (MAP) 85/54 (64) Pulse Ox 97 O2 Delivery Nasal Cannula O2 Flow Rate 3.00 FiO2 21 Capillary Refill : Less Than 3 Seconds Blood Pressure Mean: 64 Height, Weight, BMI Height: '" Weight: lbs. oz. kg; 29.00 BMI Method: General Appearance: No Apparent Distress, WD/WN, Other (responsive to pressure stimuli. Heavily soiled with stool and urine) HEENT: PERRL/EOMI, Normal ENT Inspection Neck: Normal Inspection Respiratory: Lungs Clear, Normal Breath Sounds, No Accessory Muscle Use Cardiovascular: Regular Rate, Rhythm, No Edema, No Murmur Gastrointestinal: Non Tender, Soft; No Distended Extremity: No Pedal Edema Neurologic/Psychiatric: Other (moves extremities. Responds to pressure stimuli) Skin: normal color, warm/dry Focused Exam Lactate Level Lactic Acid Level Progress/Results/Core Measures Suspected Sepsis SIRS Temperature: Pulse: 73 Respiratory Rate: 16 Laboratory Tests 07/29/23 03:35: White Blood Count 5.2 07/31/23 05:53: White Blood Count 3.8L Blood Pressure 85 /54 Mean: 64 Laboratory Tests 07/29/23 03:35: Creatinine 0.73, Platelet Count 169, Total Bilirubin 0.5 07/31/23 05:53: Creatinine 0.85, Platelet Count 206, Total Bilirubin 0.8 Results/Orders Lab Results Laboratory Tests Test 07/29/23 15:40 07/31/23 05:53 Range/Units Glucometer 188 H 70-110 MG/DL White Blood Count 3.8 L 4.3-11.0 10^3/uL Red Blood Count 4.20 3.80-5.11 10^6/uL Hemoglobin 13.0 11.5-16.0 g/dL Hematocrit 39 35-52 % Mean Corpuscular Volume 93 80-99 fL Mean Corpuscular Hemoglobin 31 25-34 pg Mean Corpuscular Hemoglobin Concent 33 32-36 g/dL Red Cell Distribution Width 12.5 10.0-14.5 % Platelet Count 206 130-400 10^3/uL Mean Platelet Volume 10.9 9.0-12.2 fL Immature Granulocyte % (Auto) 1 % Neutrophils (%) (Auto) 72 42-75 % Lymphocytes (%) (Auto) 17 12-44 % Monocytes (%) (Auto) 10 0-12 % Eosinophils (%) (Auto) 0 0-10 % Basophils (%) (Auto) 0 0-10 % Neutrophils # (Auto) 2.7 1.8-7.8 10^3/uL Lymphocytes # (Auto) 0.6 L 1.0-4.0 10^3/uL Monocytes # (Auto) 0.4 0.0-1.0 10^3/uL Eosinophils # (Auto) 0.0 0.0-0.3 10^3/uL Basophils # (Auto) 0.0 0.0-0.1 10^3/uL Immature Granulocyte # (Auto) 0.0 0.0-0.1 10^3/uL Sodium Level 144 135-145 MMOL/L Potassium Level 4.3 3.6-5.0 MMOL/L Chloride Level 110 H 98-107 MMOL/L Carbon Dioxide Level 23 21-32 MMOL/L Anion Gap 11 5-14 MMOL/L Blood Urea Nitrogen 26 H 7-18 MG/DL Creatinine 0.85 0.60-1.30 MG/DL Estimat Glomerular Filtration Rate 67 BUN/Creatinine Ratio 31 Glucose Level 100 70-105 MG/DL Calcium Level 8.5 8.5-10.1 MG/DL Corrected Calcium 8.8 8.5-10.1 MG/DL Total Bilirubin 0.8 0.1-1.0 MG/DL Aspartate Amino Transf (AST/SGOT) 31 5-34 U/L Alanine Aminotransferase (ALT/SGPT) 44 0-55 U/L Alkaline Phosphatase 56 40-136 U/L Total Protein 6.1 L 6.4-8.2 GM/DL Albumin 3.6 3.2-4.5 GM/DL My Orders Vital Signs/I&O 07/30/23 07/31/23 07/31/23 23:45 07:10 08:00 Temp 36.1 36.4 Pulse 67 59 Resp 16 16 B/P (MAP) 132/62 (85) 149/68 (95) Pulse Ox 94 93 O2 Delivery Room Air Room Air Room Air O2 Flow Rate 0.00 0.00 Capillary Refill : Less Than 3 Seconds Blood Pressure Mean: 64 Point of Care Testing Finger Stick Blood Glucose: 143 Progress Note #1: Time: 19:42 Progress Note Patient was promptly examined after I was notified of patient's arrival by EMS staff. Report from EMS was received. Patient was found to be hypotensive but that resolved with a liter of IV normal saline which was initiated by EMS. O2 saturation was resuscitated with nasal cannula oxygen. Patient was worked up for both stroke and sepsis. Work-up was relatively unremarkable. CT of the head was obtained. I did not appreciate any acute abnormalities on my interpretation. Radiologist's report was also reviewed as noted below and agreed with no acute abnormalities. Chest x-ray was interpreted by me as having mild perihilar infiltrates. Radiologist's report was also reviewed as below. Van jones's cognitive status did not improve much during the course of her ER stay, but her vital signs did improve. She did test positive for COVID-19. The remainder of her labs were also reviewed and interpreted by me. Labs were relatively unremarkable. CBC demonstrated relative lymphopenia but was otherwise unremarkable. CMP demonstrated a mild bump in her creatinine when compared with prior at 1.29 with a GFR of 41. BUN was 27. Lactic acid was normal at 1.43. There was mild hyperglycemia with a blood sugar of 163. D- dimer was elevated above 1. I discussed the admission with Dr. Ellsion who will place orders. We discussed potential for treatment with dexamethasone given her hypoxia and possibly Lovenox given the elevated D-dimer. Patient cannot have a CT angiogram at this time due to her creatinine. Dr. Ellison will review the patient's case and make a determination on these treatments. She will address all therapies from here moving forward with admission orders. We discussed possible etiology of her altered mental status. I suspect it is multifactorial with contributing factors being COVID-19 infection, hypoxia, and medication effect from her recently administered Zyprexa and Seroquel. These medications were reportedly administered around 1600. Progress Note #2: Time: 20:59 Progress Note I discussed patient's status and diagnosis with her daughter, Rosanna, who was very pleasant and appreciative. Rosanna is the healthcare power of projection engineer. She confirms the DNR request and can provide documentation on both power of projection engineer and DNR by email if necessary. DNR order was placed on the chart. ECG Initial ECG Impression Date: Jul 27, 2023 Initial ECG Impression Time: 19:30 Initial ECG Rate: 76 Initial ECG Rhythm: Normal Sinus Initial ECG Intervals: Normal Initial ECG Impression: Normal Comment Normal sinus rhythm with no ST elevation or depression. No abnormal intervals or axis deviation. Diagnostic Imaging Diagonstic Imaging: Xray Plain Films/CT/US/NM/MRI: chest Comments NAME: SAGRARIO BOBO I Esanex REC#: [id number] PT STATUS: REG ER : 1940 PHYSICIAN: EVE LINDSEY MD ADMIT DATE: 07/27/23/ER Draft Date of Exam:07/27/23 CHEST 1 VIEW, AP/PA ONLY INDICATION: Sepsis. COMPARISON: None. FINDINGS: Single frontal view of the chest demonstrates normal cardiac silhouette and pulmonary vasculature. There is subtle asymmetric interstitial perihilar prominence, right greater than left. No large effusion or pneumothorax is seen. Osseous structures show no gross acute abnormality. IMPRESSION: Subtle central interstitial predominance, right greater than left. Findings could be on the basis of interstitial pneumonia or edema. Follow-up is advised. Dictated on workstation # [id number] Dict: 07/27/231913 Trans: 07/27/2319[address] [facility] [id number] Interpreted by: KIN NEVAREZ MD Diagonstic Imaging: CT Plain Films/CT/US/NM/MRI: head Comments NAME: SAGRARIO BOBO I MED REC#: [id number] PT STATUS: REG ER : 1940 PHYSICIAN: EVE LINDSEY MD ADMIT DATE: 07/27/23/ER Draft Date of Exam:07/27/23 CT HEAD WO-R/O STROKE INDICATION: Neuro deficit. TECHNIQUE: Routine non contrast-enhanced axial images were obtained from the skull base to the vertex. Auto Exposure Controls were utilized during the CT exam to meet ALARA standards for radiation dose reduction COMPARISON: 05/17/2023. FINDINGS: The ventricles and cortical sulci are diffusely prominent, compatible with age-related volume loss. There are confluent areas of abnormal, low attenuation in the periventricular white matter. This is consistent with chronic small vessel ischemic changes. There is no midline shift or mass-effect. No acute intra-axial hemorrhage is seen. There is no abnormal area of increased or decreased density to suggest acute hemorrhage or edema. No extra-axial mass or collection is present. The bony calvarium is intact. The visualized paranasal sinuses show scattered mucosal thickening with air-fluid level in the right maxillary sinus. The mastoid air cells are clear. IMPRESSION: 1. No acute intracranial abnormality. No CT evidence of mass, acute infarct or intracranial hemorrhage. 2. Small vessel ischemic changes in the deep white matter. 3. Paranasal sinus disease. Dictated on workstation # [id number] Dict: 07/27/231912 Trans: 07/27/2319[address] [facility] [id number] Interpreted by: KIN NEVAREZ MD Departure Communication (Admissions) Time/Spoke to Admitting Phy: 19:40 Dr. Ellison Impression Primary Impression: COVID-19 virus infection Additional Impressions: Altered mental status Qualified Codes: R41.82 - Altered mental status, unspecified Hypoxia Disposition: ADMITTED INPATIENT Condition: Stable Admissions Decision to Admit Reason: Admit from ER (General) Decision to Admit/Date: Jul 27, 2023 Time/Decision to Admit Time: 19:40 Departure-Patient Inst. Referrals: PEYTON HERRERA DO (PCP/Family) Primary Care Physician Copy Copies To 1: PEYTON HERRERA JOSHUA T MD Jul 27, 2023 18:54
[2023-07-27 18:55] LABS: ALBUMIN 3.6 GM/DL (3.2-4.5); BILIRUBIN,TOTAL 0.7 MG/DL (0.1-1.0); CALCIUM 8.2 MG/DL (8.5-10.1); CREATININE SERUM 1.29 MG/DL (0.60-1.30); POTASSIUM 4.9 MMOL/L (3.6-5.0); TOTAL PROTEIN 6.2 GM/DL (6.4-8.2)
[2023-07-27 19:15] LABS: BILIRUBIN,URINE 1+ (NEGATIVE); CLARITY,URINE CLEAR; COLOR,URINE YELLOW; GLUCOSE, URINE (UA) NEGATIVE (NEGATIVE); KETONES,URINE NEGATIVE (NEGATIVE); NITRITE,URINE NEGATIVE (NEGATIVE); PH,URINE 5.5 (5-9); PROTEIN,URINE 1+ (NEGATIVE)
[2023-07-27 19:16] LABS: BACTERIA,URINE TRACE /HPF; LEUKOCYTE ESTERASE ,URINE NEGATIVE (NEGATIVE)
--- NOTE | 2023-07-27 19:21 | Diagnostic Imaging Report ---
INDICATION: Sepsis. COMPARISON: None. FINDINGS: Single frontal view of the chest demonstrates normal cardiac silhouette and pulmonary vasculature. There is subtle asymmetric interstitial perihilar prominence, right greater than left. No large effusion or pneumothorax is seen. Osseous structures show no gross acute abnormality. IMPRESSION: Subtle central interstitial predominance, right greater than left. Findings could be on the basis of interstitial pneumonia or edema. Follow-up is advised. Dictated by: Dictated on workstation # [id number]
--- NOTE | 2023-07-27 19:29 | Diagnostic Imaging Report ---
INDICATION: Neuro deficit. TECHNIQUE: Routine non contrast-enhanced axial images were obtained from the skull base to the vertex. Auto Exposure Controls were utilized during the CT exam to meet ALARA standards for radiation dose reduction COMPARISON: 05/17/2023. FINDINGS: The ventricles and cortical sulci are diffusely prominent, compatible with age-related volume loss. There are confluent areas of abnormal, low attenuation in the periventricular white matter. This is consistent with chronic small vessel ischemic changes. There is no midline shift or mass-effect. No acute intra-axial hemorrhage is seen. There is no abnormal area of increased or decreased density to suggest acute hemorrhage or edema. No extra-axial mass or collection is present. The bony calvarium is intact. The visualized paranasal sinuses show scattered mucosal thickening with air-fluid level in the right maxillary sinus. The mastoid air cells are clear. IMPRESSION: 1. No acute intracranial abnormality. No CT evidence of mass, acute infarct or intracranial hemorrhage. 2. Small vessel ischemic changes in the deep white matter. 3. Paranasal sinus disease. Dictated by: Dictated on workstation # [id number]
[2023-07-27] MEDS ORDERED: CALCIUM CARBONATE 500 MG CHEW TABLET PO PRN (21:00)
[2023-07-27] MEDS ORDERED: oxyCODONE IMMEDIATE RELEASE 5 MG TABLET PO PRN (21:00)
[2023-07-27] MEDS ORDERED: ONDANSETRON INJECTION 4 MG/2 ML (SDV) IV PRN (21:00)
[2023-07-27] MEDS ORDERED: guaiFENesin/CODEINE 10ML UDC PO PRN (21:00)
[2023-07-27] MEDS ORDERED: HYDROmorphone INJECTION 2 MG/ML VIAL IV PRN (21:00)
[2023-07-27] MEDS ORDERED: ANTACID SUSPENSION 30 ML UDC PO PRN (21:00)
[2023-07-27] MEDS ORDERED: ONDANSETRON 4 MG ORAL DISSOLVE TABLET PO PRN (21:00)
[2023-07-27] MEDS ORDERED: ACETAMINOPHEN 325 MG TABLET PO PRN (21:00)
[2023-07-27] MEDS ORDERED: MILK OF MAGNESIA 400 MG/5 ML 30 ML UDC PO PRN (21:00)
[2023-07-27] MEDS ORDERED: LACTULOSE SYRUP 10GM/15ML 30ML UDC PO PRN (21:00)
[2023-07-27] MEDS ORDERED: BISACODYL 10 MG SUPPOSITORY PR PRN (21:00)
[2023-07-27] MEDS ORDERED: diphenhydrAMINE INJ 50 MG/ML VIAL IVP PRN (21:00)
[2023-07-27] MEDS ORDERED: diphenhydrAMINE 25 MG TABLET PO PRN (21:00)
[2023-07-27] MEDS ORDERED: AZITHROMYCIN INJECTION 500 MG in NS (IVPB) 250 ML 250 ML IV ONE (21:00)
[2023-07-27] MEDS ORDERED: MELATONIN 3 MG TABLET PO PRN (21:00)
[2023-07-27] MEDS ORDERED: HALOPERIDOL INJECTION 5 MG/ML VIAL IM PRN (21:00)
[2023-07-27] MEDS: DOCUSATE SODIUM 100 MG CAPSULE PO SCH (21:04)
[2023-07-27] MEDS: SENNOSIDES 8.6 MG TABLET PO SCH (21:04)
[2023-07-27 21:18] VITALS: BP 85/54
[2023-07-27] MEDS ORDERED: RT-ALBUTEROL HFA 8.5 GM INHALER IH PRN (21:30)
[2023-07-27] MEDS: NS IV 1000 ML 1,000 ML IV SCH (21:53)
[2023-07-27] MEDS: ENOXAPARIN 80 MG/0.8 ML SYRINGE SC SCH (21:54)
[2023-07-27] MEDS: cefTRIAXone IV/IM 1,000 MG in NS (IVPB) 50 ML 50 ML IV SCH (21:54)
[2023-07-28] VITALS (11 sets, daily range): BP systolic 137–176; BP diastolic 69–111
[2023-07-28 05:03] LABS: BASOPHILS % (AUTO) 0 % (0-10); EOSINOPHILS % (AUTO) 0 % (0-10); HEMATOCRIT 36 % (35-52); HEMOGLOBIN 11.8 g/dL (11.5-16.0); LYMPHOCYTES # (AUTO) 0.6 10^3/uL (1.0-4.0); LYMPHOCYTES % (AUTO) 16 % (12-44); MEAN CORPUSCULAR HEMOGLOBIN 31 pg (25-34); MEAN CORPUSCULAR HGB CONC 33 g/dL (32-36); MEAN CORPUSCULAR VOLUME 95 fL (80-99); MEAN PLATELET VOLUME 11.5 fL (9.0-12.2); MONOCYTES # (AUTO) 0.4 10^3/uL (0.0-1.0); MONOCYTES % (AUTO) 11 % (0-12); NEUTROPHILS # (AUTO) 2.5 10^3/uL (1.8-7.8); NEUTROPHILS % (AUTO) 73 % (42-75); PLATELET COUNT 155 10^3/uL (130-400); WHITE BLOOD COUNT 3.4 10^3/uL (4.3-11.0)
[2023-07-28 05:23] LABS: ALBUMIN 3.3 GM/DL (3.2-4.5); BILIRUBIN,TOTAL 0.5 MG/DL (0.1-1.0); CALCIUM 7.7 MG/DL (8.5-10.1); CREATININE SERUM 1.06 MG/DL (0.60-1.30); POTASSIUM 4.1 MMOL/L (3.6-5.0); TOTAL PROTEIN 5.5 GM/DL (6.4-8.2)
--- NOTE | 2023-07-28 07:00 | History & Physical ---
History of Present Illness HPI/Chief Complaint CC: COVID induced encephalopathy HPI: This is an 83yoWF clinic patient of Dr Lock who has a h/o severe dementia and sometimes agitation who presented to the ER in AMS with diarrhea. Patient was assessed and diagnosed with COVID and due to hypoxia requiring O2 new onset and infiltrates on CXR she was admitted for ICU. She is DNR and daughter confirmed this. Currently she is lethargic and confused. Source: RN/MD Exam Limitations: clinical condition Date Seen 07/28/23 Time Seen by a Provider: 10:00 Attending Physician Za Lock DO PCP Admitting Physician: Candace Ellison DO Attending Physician: Candace Ellison DO Referring Physician Date of Admission Jul 27, 2023 at 20:32 Home Medications & Allergies Home Medications Reviewed patient Home Medication Reconciliation performed by pharmacy medication reconciliations telecommunications technician and/or nursing. Patients Allergies have been reviewed. Allergies Allergies Coded Allergies No Known Drug Allergies (Casxjloyge36/7/22) Past Mzvbpjd-Aadzfn-Jbzwpo Hx Past Med/Social Hx: Reviewed Nursing Past Med/Soc Hx Patient Social History Employed/Student: retired Smoking Status: Unknown if Ever Smoked Past Medical History Cardiac: Hypertension Neurological: Dementia Review of Systems ROS-Unable to Obtain: confused Constitutional: see HPI Physical Exam Physical Exam Vital Signs Vital Signs - First Documented 07/27/23 18:05 Temp 36.0 Pulse 73 Resp 16 B/P (MAP) 85/54 (64) Pulse Ox 97 O2 Delivery Nasal Cannula O2 Flow Rate 3.00 Capillary Refill : Less Than 3 Seconds Height, Weight, BMI Height: '" Weight: lbs. oz. kg; 22.10 BMI Method: General Appearance: No Apparent Distress, WD/WN, Chronically ill, Thin, Other (lethargic and lying on right side) Respiratory: Lungs Clear, Normal Breath Sounds, Decreased Breath Sounds Neurologic/Psychiatric: Other (lethargic) Results Results/Procedures Labs Laboratory Tests 07/27/23 18:25 07/28/23 04:06 Patient resulted labs reviewed. Assessment/Plan Admission Diagnosis Assessment: COVID induced acute encephalopathy Acute respiratory failure due to COVID COVID PNA Dementia severe in nature HTN Plan: Move to 4th floor Supportive care O2 IV Decadron IV abx Bearden Admission Status: Inpatient Order (span 2 midnights) Reason for Inpatient Admission: resp failure due to covid LOCO,CANDACE DO Jul 28, 2023 07:00
--- NOTE | 2023-07-28 08:23 | Physical Therapy Progress Note ---
Therapy Progress Note RN states that pt remains very confused and lethargic, will hold PT evaluation today and follow up tomorrow. DEZ CALLES PT Jul 28, 2023 08:23
--- NOTE | 2023-07-28 10:37 | Diagnostic Imaging Report ---
INDICATION: Pneumonia. TIME OF EXAM: 6:00 AM. COMPARISON: Correlation is made with the prior chest of one day earlier. FINDINGS: The heart size is stable. The lungs are clear. No infiltrates are seen. There is no effusion or pneumothorax. IMPRESSION: No acute cardiopulmonary process is detected. Dictated by: Dictated on workstation # [id number]
[2023-07-28] MEDS: SENNOSIDES 8.6 MG TABLET PO SCH ×2 (10:45→22:14)
[2023-07-28] MEDS: DOCUSATE SODIUM 100 MG CAPSULE PO SCH ×2 (10:45→22:14)
[2023-07-28] MEDS: dexAMETHasone INJ 10 MG/ML 1 ML VIAL IV SCH (12:10)
[2023-07-28] MEDS: ENOXAPARIN 80 MG/0.8 ML SYRINGE SC SCH ×2 (12:10→22:14)
[2023-07-28] MEDS: NS IV 1000 ML 1,000 ML IV SCH (12:39)
[2023-07-28] MEDS: cefTRIAXone IV/IM 1,000 MG in NS (IVPB) 50 ML 50 ML IV SCH (22:14)
[2023-07-29] VITALS (8 sets, daily range): BP systolic 120–193; BP diastolic 56–106
[2023-07-29] MEDS: NS IV 1000 ML 1,000 ML IV SCH (01:33)
[2023-07-29 05:22] LABS: BASOPHILS % (AUTO) 0 % (0-10); EOSINOPHILS % (AUTO) 0 % (0-10); HEMATOCRIT 37 % (35-52); HEMOGLOBIN 12.2 g/dL (11.5-16.0); LYMPHOCYTES # (AUTO) 0.7 10^3/uL (1.0-4.0); LYMPHOCYTES % (AUTO) 14 % (12-44); MEAN CORPUSCULAR HEMOGLOBIN 30 pg (25-34); MEAN CORPUSCULAR HGB CONC 33 g/dL (32-36); MEAN CORPUSCULAR VOLUME 93 fL (80-99); MEAN PLATELET VOLUME 11.6 fL (9.0-12.2); MONOCYTES # (AUTO) 0.5 10^3/uL (0.0-1.0); MONOCYTES % (AUTO) 10 % (0-12); NEUTROPHILS % (AUTO) 76 % (42-75); PLATELET COUNT 169 10^3/uL (130-400); WHITE BLOOD COUNT 5.2 10^3/uL (4.3-11.0)
[2023-07-29 06:04] LABS: ALBUMIN 3.4 GM/DL (3.2-4.5); BILIRUBIN,TOTAL 0.5 MG/DL (0.1-1.0); CALCIUM 8.2 MG/DL (8.5-10.1); CREATININE SERUM 0.73 MG/DL (0.60-1.30); POTASSIUM 4.2 MMOL/L (3.6-5.0); TOTAL PROTEIN 5.8 GM/DL (6.4-8.2)
[2023-07-29] MEDS: dexAMETHasone INJ 10 MG/ML 1 ML VIAL IV SCH (09:03)
[2023-07-29] MEDS: ENOXAPARIN 80 MG/0.8 ML SYRINGE SC SCH ×2 (09:03→19:26)
[2023-07-29] MEDS: SENNOSIDES 8.6 MG TABLET PO SCH ×2 (09:16→19:26)
[2023-07-29] MEDS: DOCUSATE SODIUM 100 MG CAPSULE PO SCH ×2 (09:16→19:26)
--- NOTE | 2023-07-29 09:47 | Progress Note ---
PAM MCINTYRE 07/29/23 0947: Subjective Date Seen by a Provider: Jul 29, 2023 Time Seen by a Provider: 08:45 Subjective/Events-last exam CC: Altered Mental Status HPI: This is a 83 yo female patient h/o Alzheimer's dementia and HTN that presented to the ER on 07/27 for AMS. Pt tested positive for COVID-19. Pt had chest xr on 07/27 that was suspicious for covid pneumonia. Acute encephalopathy secondary to acute hypoxia is suspected as well with O2 sats initially in the 80s, but now has O2 sats at 94% on RA . Chest XR on 07/28 showed clear lung zhao without perihilar infiltrates. Pt was incidentally found to have hypertensive urgency with initial BP of 190/106 that is now 173/81. Subjective/Events last exam No signs of acute distress (no labored breathing, patient appears comfortable) BP has decreased Pt is being moved to 4th floor today Review of Systems Neurological: Other (Unable to obtain due to pt mental status (dementia)\) Focused Exam Lactate Level 07/27/23 18:25: Lactic Acid Level 1.43 Objective Exam Last Set of Vital Signs Vital Signs Date Time Temp Pulse Resp B/P (MAP) Pulse Ox O2 Delivery O2 Flow Rate FiO2 07/29/23 04:00 Room Air 07/29/23 01:20 73 19 173/81 (111) 94 07/28/23 19:13 1.00 07/28/23 18:00 36.4 Capillary Refill : Less Than 3 Seconds I&O Intake and Output 07/28/23 23:59 Intake Total 250 ml Output Total 850 ml Balance -600 ml Intake Oral 250 ml Output Urine Total 850 ml General: No Acute Distress Lungs: Clear to Auscultation Heart: Regular Rate, Normal S1, Normal S2, No Murmurs Extremities: No Clubbing, No Cyanosis Results Lab Laboratory Tests 07/29/23 03:35: White Blood Count 5.2, Red Blood Count 4.01, Hemoglobin 12.2, Hematocrit 37, Mean Corpuscular Volume 93, Mean Corpuscular Hemoglobin 30, Mean Corpuscular Hemoglobin Concent 33, Red Cell Distribution Width 12.4, Platelet Count 169, Mean Platelet Volume 11.6, Immature Granulocyte % (Auto) 0, Neutrophils (%) (Auto) 76H, Lymphocytes (%) (Auto) 14, Monocytes (%) (Auto) 10, Eosinophils (%) (Auto) 0, Basophils (%) (Auto) 0, Neutrophils # (Auto) 4.0, Lymphocytes # (Auto) 0.7L, Monocytes # (Auto) 0.5, Eosinophils # (Auto) 0.0, Basophils # (Auto) 0.0, Immature Granulocyte # (Auto) 0.0, Sodium Level 141, Potassium Level 4.2, Chloride Level 110H, Carbon Dioxide Level 20L, Anion Gap 11, Blood Urea Nitrogen 18, Creatinine 0.73, Estimat Glomerular Filtration Rate 81, BUN/Creatinine Ratio 25, Glucose Level 89, Calcium Level 8.2L, Corrected Calcium 8.7, Total Bilirubin 0.5, Aspartate Amino Transf (AST/SGOT) 49H, Alanine Aminotransferase (ALT/SGPT) 55, Alkaline Phosphatase 61, Total Protein 5.8L, Albumin 3.4 Microbiology 07/27/23 Blood Culture - Preliminary, Resulted No growth Assessment/Plan Assessment/Plan Assess & Plan/Chief Complaint Assessment: 1. COVID Pneumonia 2. Acute Encephalopathy secondary to acute respiratory failure 3. Hypertensive Urgency Plan: 1. Move to 4th floor 2. Supportive Care (IV fluids, laxatives prn, anti-emetics prn, pain medication) 3. Monitor blood pressure CANDACE ELLISON DO 07/29/232116: Subjective Subjective/Events-last exam Patient still lethargic Altered mental status still remains Moving down to fourth floor Objective Exam General: Other (Sleeping) Lungs: Clear to Auscultation Assessment/Plan Assessment/Plan Assess & Plan/Chief Complaint Moved down to fourth floor Oxygen supplementation Supervisory-Addendum Brief Verification & Attestation Participated in pt care: history, MDM, physical Personally performed: exam, history, MDM, supervision of care Care discussed with: Medical Student Procedures: n/a Results interpretation: Verified all documentation Verification and Attestation of Medical Student E/M Service A medical student performed and documented this service in my presence. I reviewed and verified all information documented by the medical student and made modifications to such information, when appropriate. I personally performed the physical exam and medical decision making. Candace Ellison Jul 29, 2023,21:17 PAM MCINTYRE Jul 29, 2023 09:47 CANDACE ELLISON DO Jul 29, 2023 21:17
[2023-07-29] MEDS ORDERED: AMLO-250 PO (13:58)
[2023-07-29] MEDS ORDERED: OLN5T PO (13:58)
[2023-07-29] MEDS ORDERED: VNL75T PO (13:58)
[2023-07-29] MEDS ORDERED: OLME20TA24 PO (13:58)
[2023-07-29] MEDS ORDERED: QUET25TA35 PO (13:58)
[2023-07-29] MEDS ORDERED: amLODIPine 5 MG TABLET PO NR (14:30)
[2023-07-29] MEDS ORDERED: cloNIDine 0.1 MG TABLET PO PRN (14:30)
--- NOTE | 2023-07-29 14:41 | Physical Therapy Evaluation ---
PT Evaluation-General Medical Diagnosis Admission Date Jul 27, 2023 at 20:32 Medical Diagnosis: COVID induced encephalopathy Onset Date: Jul 27, 2023 Therapy Diagnosis Therapy Diagnosis: Gait deficit, strength Precautions Precautions/Isolations: Droplet Isolation, Fall Prevention Weight Bear Status Right Lower Extremity: Right Full Weight Bearing Left Lower Extremity: Left Full Weight Bearing Referral Physician: Dr. Ellison Reason for Referral: Evaluation/Treatment Medical History Reviewed History: Yes Social History Home: Assisted Living Current Living Status: Alone Entry Into Home: Level Entry Prior Prior Level of Function SCALE: Activities may be completed with or without assistive devices. 1-Igggvwymon-oabhmrx completes the activity by him/herself with no assistance from a helper. 5-Set-up or Clean-up Assistance-helper sets up or cleans up; patient completes activity. [place] assists only prior to or following the activity. 4-Supervision or Touching Assistance-helper provides verbal cues and/or touching/steadying and/or contact guard assistance as patient completes activity. Assistance may be provided throughout the activity or intermittently. 3-Partial/Moderate Assistance-helper does LESS THAN HALF the effort. [place] lifts, holds or supports trunk or limbs, but provides less than half the effort. 2-Substantial/Maximal Assistance-helper does MORE THAN HALF the effort. [place] lifts or holds trunk or limbs and provides more than half the effort. 8-Epvgfuxzs-dnehjn does ALL the effort. Patient does none of the effort to complete the activity. Or, the assistance of 2 or more helpers is required for the patient to complete the activity. If activity was not attempted, code reason: 7-Patient Refused. 9-Not Applicable-not attempted and the patient did not perform the activity before the current illness, exacerbation or injury. 10-Not Attempted due to Environmental Limitations-(lack of equipment, weather restraints, etc.). 88-Not Attempted due to Medical Conditions or Safety Concerns. Bed Mobility: 6 Transfers (B,C,W/C): 6 Gait: 6 Indoor Mobility (Ambulation): Independent Prior Devices Use: Walker PT Evaluation-Current Subjective Patient lying supine in bed upon PT arrival, agreeable to treatment. Patient rates pain at 0/10 currently. Objective Patient Orientation: Person, Place, Time, Situation Attachments: Oxygen, Bearden Catheter, IV ROM/Strength ROM Lower Extremities WFLs BLEs all planes Strength Lower Extremities 3+/5 BLEs all planes Sensory Vision: Functional Hearing: Impaired Sensation Right Lower Extremit: Intact Sensation Left Lower Extremity: Intact Transfers Roll Left to Right (QC): 4 Sit to Lying (QC): 4 Lying to Sitting/Side of Bed(Q: 4 Sit to Stand (QC): 4 Chair/Gfe-gv-Ulvlt Xfer(QC): 4 Gait Does the Patient Walk?: Yes Mode of Locomotion: Walk Anticipated Mode of Locomotion: Walk Walk 10 feet (QC): 4 Distance: 30' Gait Assistive Device: FWW Balance Sitting Static: Good Sitting Dynamic: Good Standing Static: Fair Standing Dynamic: Fair Assessment/Needs Patient tolerated treatment fair. Patient performs all bed mobility with CGA. Patient ambulates 30 feet with FWW, with CGA and verbal cues for safety, p rogression, and posture. Patient in chair post treatment with all needs met, nursing notified, call light in hand and chair alarm activated. Rehab Potential: Fair PT Half-Way Goals Half-Way Goals PT Half-Way Goals Time Frame: Aug 23, 2023 Roll Left & Right (QC): 6 Sit to Lying (QC): 6 Lying-Sitting on Side/Bed(QC): 6 Sit to Stand (QC): 6 Chair/Fpx-bi-Tfktw Xfer(QC): 6 Toilet Transfer (QC): 6 Does the Patient Walk: Yes Walk 10 feet (QC): 6 Walk 50ft with 2 Turns (QC): 4 Walk 150 ft (QC): 4 PT Plan Problem List Problem List: Activity Tolerance, Functional Strength, Safety, Balance, Gait, Transfer, Bed Mobility, ROM Treatment/Plan Treatment Plan: Continue Plan of Care Treatment Plan: Bed Mobility, Education, Functional Activity Eleuterio, Functional Strength, Group Therapy, Gait, Safety, Therapeutic Exercise, Transfers Treatment Duration: Aug 23, 2023 Frequency: 6 times per week Estimated Hrs Per Day: .25 hour per day Patient and/or Family Agrees t: Yes Safety Risks/Education Patient Education: Gait Training, Transfer Techniques Teaching Recipient: Patient Teaching Methods: Demonstration, Discussion Response to Teaching: Verbalize Understanding, Return Demonstration Time Time In: 1309 Time Out: 1329 DATE: Jul 29, 2023 Total Billed Treatment Time: 20 Total Billed Treatment Visit, DEEPTI RODRÍGUEZ PT Jul 29, 2023 14:41
[2023-07-29] MEDS ORDERED: LACT10SO64 PO (15:53)
[2023-07-29] MEDS ORDERED: CYAN-41 PO (15:53)
[2023-07-29] MEDS ORDERED: POLY17PO6 PO (15:53)
[2023-07-29] MEDS ORDERED: ACET325T38 PO (15:53)
[2023-07-29] MEDS ORDERED: OLAN2.5T27 PO (15:53)
[2023-07-29] MEDS: QUEtiapine IMMEDIATE RELEASE 25 MG TABLET PO SCH (19:26)
[2023-07-29] MEDS: OLANZapine 2.5 MG TABLET PO SCH (19:26)
[2023-07-29] MEDS: cefTRIAXone IV/IM 1,000 MG in NS (IVPB) 50 ML 50 ML IV SCH (19:26)
[2023-07-29] MEDS ORDERED: AZITHROMYCIN 250 MG TABLET PO SCH (21:00)
[2023-07-30] VITALS (7 sets, daily range): BP systolic 131–142; BP diastolic 58–85
[2023-07-30] MEDS ORDERED: NON-FORMULARY MEDICATION 1 EA EA (Olmesartan Medoxomil 20 MG) PO SCH (09:00)
[2023-07-30] MEDS ORDERED: amLODIPine 5 MG TABLET PO SCH (09:00)
[2023-07-30] MEDS: SENNOSIDES 8.6 MG TABLET PO SCH ×2 (09:19→19:32)
[2023-07-30] MEDS: dexAMETHasone 6 MG TABLET PO SCH (09:19)
[2023-07-30] MEDS: LOSARTAN 100 MG TABLET PO SCH (09:19)
[2023-07-30] MEDS: OLANZapine 2.5 MG TABLET PO SCH ×2 (09:19→19:31)
[2023-07-30] MEDS: DOCUSATE SODIUM 100 MG CAPSULE PO SCH ×2 (09:19→19:32)
[2023-07-30] MEDS: ENOXAPARIN 80 MG/0.8 ML SYRINGE SC SCH ×2 (09:20→19:32)
[2023-07-30] MEDS: amLODIPine 5 MG TABLET PO SCH (09:20)
[2023-07-30] MEDS: QUEtiapine IMMEDIATE RELEASE 25 MG TABLET PO SCH ×3 (09:22→21:14)
--- NOTE | 2023-07-30 10:23 | Progress Note ---
Subjective Date Seen by a Provider: Jul 30, 2023 Time Seen by a Provider: 11:00 Subjective/Events-last exam Patient about the same Awake and alert and moving around pretty well but refusing to eat and take meds Not hypoxic Hopefully be able to return back to assisted living to get back in familiar environment where she can be comfortable and eat and drink Review of Systems General: Fatigue, Malaise Neurological: Confusion Focused Exam Lactate Level 07/27/23 18:25: Lactic Acid Level 1.43 Objective Exam Last Set of Vital Signs Vital Signs Date Time Temp Pulse Resp B/P (MAP) Pulse Ox O2 Delivery O2 Flow Rate FiO2 07/30/23 08:01 36.4 77 19 142/85 (104) 95 Room Air 07/30/23 07:40 0.00 Capillary Refill : Less Than 3 Seconds I&O Intake and Output 07/30/23 00:00 Intake Total 530 ml Output Total 2700 ml Balance -2170 ml Intake Oral 480 ml IV Total 50 ml Output Urine Total 2700 ml General: Alert Lungs: Clear to Auscultation Heart: Regular Rate Psych/Mental Status: Other (Confused) Results Lab Laboratory Tests 07/29/23 15:40: Glucometer 188H Microbiology 07/27/23 Blood Culture - Preliminary, Resulted No growth 07/27/23 Urine Culture - Final, Complete NO GROWTH Assessment/Plan Assessment/Plan Assess & Plan/Chief Complaint Assessment: COVID induced encephalopathy Dementia Agitation Hypertension Plan: Supportive care Monitor closely ELIZABETH ADAN DO Jul 30, 2023 10:23
--- NOTE | 2023-07-30 15:47 | Physical Therapy Daily Note ---
PT Daily Note-Current Subjective Pt sarcastic but agreeable to ambulation. Pain Section J - Health Conditions 1. Rarely or not at all 2. Occasionally 3. Frequently 4. Almost constantly 8. Unable to answer Pain Effect on Sleep: 1 Pain Interference with Therapy: 1 Pain Interference w/Day-to-Day: 1 Mental Status Patient Orientation: Confused Transfers SCALE: Activities may be completed with or without assistive devices. 9-Ycpsbmrbsy-amzpleo completes the activity by him/herself with no assistance from a helper. 5-Set-up or Clean-up Assistance-helper sets up or cleans up; patient completes activity. [place] assists only prior to or following the activity. 4-Supervision or Touching Assistance-helper provides verbal cues and/or touching/steadying and/or contact guard assistance as patient completes activity. Assistance may be provided throughout the activity or intermittently. 3-Partial/Moderate Assistance-helper does LESS THAN HALF the effort. [place] lifts, holds or supports trunk or limbs, but provides less than half the effort. 2-Substantial/Maximal Assistance-helper does MORE THAN HALF the effort. [place] lifts or holds trunk or limbs and provides more than half the effort. 7-Mvqwvfjnx-amyabw does ALL the effort. Patient does none of the effort to complete the activity. Or, the assistance of 2 or more helpers is required for the patient to complete the activity. If activity was not attempted, code reason: 7-Patient Refused. 9-Not Applicable-not attempted and the patient did not perform the activity before the current illness, exacerbation or injury. 10-Not Attempted due to Environmental Limitations-(lack of equipment, weather restraints, etc.). 88-Not Attempted due to Medical Conditions or Safety Concerns. Roll Left & Right (QC): 4 Sit to Lying (QC): 4 Lying to Sitting/Side of Bed(Q: 4 Sit to Stand (QC): 4 Weight Bearing Right Lower Extremity: Right Full Weight Bearing Left Lower Extremity: Left Full Weight Bearing Gait Training Gait Assistive Device: Handheld Assist Ambulate 30ft x 2 trials, hand held assist. Slow but no loss of balance and no need for physical assistance. Assessment Current Status: Good Progress Pt progressing. Improved mobility and endurance this PT session. PT Skilled Nursing Goals Skilled Nursing Goals PT [employer] Professor Goals Time Frame: Aug 23, 2023 Roll Left & Right (QC): 6 Sit to Lying (QC): 6 Lying-Sitting on Side/Bed(QC): 6 Sit to Stand (QC): 6 Chair/Dso-el-Emjar Xfer(QC): 6 Toilet Transfer (QC): 6 Does the Patient Walk: Yes Walk 10 feet (QC): 6 Walk 50ft with 2 Turns (QC): 4 Walk 150 ft (QC): 4 PT Plan Treatment/Plan Treatment Plan: Continue Plan of Care Treatment Plan: Bed Mobility, Education, Functional Activity Eleuterio, Functional Strength, Group Therapy, Gait, Safety, Therapeutic Exercise, Transfers Treatment Duration: Aug 23, 2023 Frequency: 6 times per week Estimated Hrs Per Day: .25 hour per day Patient and/or Family Agrees t: Yes Time Time In: 1530 Time Out: 1547 DATE: Jul 30, 2023 Total Billed Treatment Time: 17 Total Billed Treatment visit, gait 17 min DRE CONRAD PT Jul 30, 2023 15:47
[2023-07-31 06:03] LABS: BASOPHILS % (AUTO) 0 % (0-10); EOSINOPHILS % (AUTO) 0 % (0-10); HEMATOCRIT 39 % (35-52); LYMPHOCYTES # (AUTO) 0.6 10^3/uL (1.0-4.0); LYMPHOCYTES % (AUTO) 17 % (12-44); MEAN CORPUSCULAR HEMOGLOBIN 31 pg (25-34); MEAN CORPUSCULAR HGB CONC 33 g/dL (32-36); MEAN CORPUSCULAR VOLUME 93 fL (80-99); MEAN PLATELET VOLUME 10.9 fL (9.0-12.2); MONOCYTES # (AUTO) 0.4 10^3/uL (0.0-1.0); MONOCYTES % (AUTO) 10 % (0-12); NEUTROPHILS # (AUTO) 2.7 10^3/uL (1.8-7.8); NEUTROPHILS % (AUTO) 72 % (42-75); PLATELET COUNT 206 10^3/uL (130-400); WHITE BLOOD COUNT 3.8 10^3/uL (4.3-11.0)
[2023-07-31 06:34] LABS: ALBUMIN 3.6 GM/DL (3.2-4.5); BILIRUBIN,TOTAL 0.8 MG/DL (0.1-1.0); CALCIUM 8.5 MG/DL (8.5-10.1); CREATININE SERUM 0.85 MG/DL (0.60-1.30); POTASSIUM 4.3 MMOL/L (3.6-5.0); TOTAL PROTEIN 6.1 GM/DL (6.4-8.2)
[2023-07-31 07:10] VITALS: BP 149/68
[2023-07-31] MEDS: QUEtiapine IMMEDIATE RELEASE 25 MG TABLET PO SCH ×3 (09:28→19:45)
[2023-07-31] MEDS: dexAMETHasone 6 MG TABLET PO SCH (09:28)
[2023-07-31] MEDS: LOSARTAN 100 MG TABLET PO SCH (09:28)
[2023-07-31] MEDS: ENOXAPARIN 80 MG/0.8 ML SYRINGE SC SCH ×2 (09:28→19:46)
[2023-07-31] MEDS: amLODIPine 5 MG TABLET PO SCH (09:28)
[2023-07-31] MEDS: SENNOSIDES 8.6 MG TABLET PO SCH ×2 (09:28→19:45)
[2023-07-31] MEDS: OLANZapine 2.5 MG TABLET PO SCH ×2 (09:29→19:45)
[2023-07-31] MEDS: DOCUSATE SODIUM 100 MG CAPSULE PO SCH ×2 (09:29→19:45)
--- NOTE | 2023-07-31 11:50 | Physical Therapy Progress Note ---
Therapy Progress Note Patient ambulating in room with nursing SBA to independently. PT to dismiss patient from services at this time. RN notified and agrees. DANIEL ZEPEDA PT Jul 31, 2023 11:49
--- NOTE | 2023-07-31 12:42 | Discharge Summary ---
Diagnosis/Chief Complaint Date of Admission Jul 27, 2023 at 20:32 Date of Discharge Discharge Date: Jul 31, 2023 Discharge Diagnosis Assessment: COVID induced encephalopathy Dementia Agitation Hypertension Plan: Supportive care Monitor closely Discharge Summary Discharge Physical Examination Allergies: Coded Allergies: No Known Drug Allergies (Unverified , 09/30/22) Vitals & I&Os Vital Signs Date Time Temp Pulse Resp B/P (MAP) Pulse Ox O2 Delivery O2 Flow Rate FiO2 07/31/23 23:59 36.5 58 17 126/74 (91) 94 Room Air 0.00 0.00 07/30/23 10:30 21 General Appearance: Alert, Cooperative Respiratory: Clear to Auscultation Cardiovascular: Regular Rate Hospital Course Was the Problem List Reviewed?: Yes Uneventful hospital course after she was admitted for COVID-19 infection. Confusion was due to COVID-19 superimposed on dementia. Overall she did well fully she will to regain function she is better familiar surroundings at assisted living. Labs (last 24 hrs) Laboratory Tests 07/27/23 16:34: Urine Color YELLOW, Urine Clarity CLEAR, Urine pH 5.5, Urine Specific [place] 1.025H, Urine Protein 1+H, Urine Glucose (UA) NEGATIVE, Urine Ketones NEGATIVE, Urine Nitrite NEGATIVE, Urine Bilirubin 1+H, Urine Urobilinogen 1.0, Urine Leukocyte Esterase NEGATIVE, Urine RBC (Auto) NEGATIVE, Urine RBC NONE, Urine WBC NONE, Urine Crystals NONE, Urine Bacteria TRACE, Urine Casts NONE, Urine Mucus NEGATIVE, Urine Culture Indicated NO 07/27/23 18:25: White Blood Count 4.4, Red Blood Count 4.18, Hemoglobin 13.1, Hematocrit 40, Mean Corpuscular Volume 97, Mean Corpuscular Hemoglobin 31, Mean Corpuscular Hemoglobin Concent 32, Red Cell Distribution Width 12.9, Platelet Count 155, Mean Platelet Volume 11.3, Immature Granulocyte % (Auto) 0, Neutrophils (%) (Au to) 78H, Lymphocytes (%) (Auto) 11L, Monocytes (%) (Auto) 10, Eosinophils (%) (Auto) 0, Basophils (%) (Auto) 0, Neutrophils # (Auto) 3.4, Lymphocytes # (Auto) 0.5L, Monocytes # (Auto) 0.5, Eosinophils # (Auto) 0.0, Basophils # (Auto) 0.0, Immature Granulocyte # (Auto) 0.0, Prothrombin Time 13.5, INR Comment 1.0, Activated Partial Thromboplast Time 31, D-Dimer 1.04H, Sodium Level 138, Potassium Level 4.9, Chloride Level 106, Carbon Dioxide Level 19L, Anion Gap 13, Blood Urea Nitrogen 27H, Creatinine 1.29, Estimat Glomerular Filtration Rate 41, BUN/Creatinine Ratio 21, Glucose Level 163H, Lactic Acid Level 1.43, Calcium Level 8.2L, Corrected Calcium 8.5, Total Bilirubin 0.7, Aspartate Amino Transf (AST/SGOT) 50H, Alanine Aminotransferase (ALT/SGPT) 37, Alkaline Phosphatase 58, Troponin I < 0.028, Total Protein 6.2L, Albumin 3.6 07/27/23 18:40: Glucometer 143H 07/27/23 18:50: Influenza Type A (RT-PCR) Not Detected, Influenza Type B (RT-PCR) Not Detected, SARS-CoV-2 RNA (RT-PCR) DetectedH 07/28/23 04:06: White Blood Count 3.4L, Red Blood Count 3.82, Hemoglobin 11.8, Hematocrit 36, Mean Corpuscular Volume 95, Mean Corpuscular Hemoglobin 31, Mean Corpuscular Hemoglobin Concent 33, Red Cell Distribution Width 13.0, Platelet Count 155, Mean Platelet Volume 11.5, Immature Granulocyte % (Auto) 0, Neutrophils (%) (Auto) 73, Lymphocytes (%) (Auto) 16, Monocytes (%) (Auto) 11, Eosinophils (%) (Auto) 0, Basophils (%) (Auto) 0, Neutrophils # (Auto) 2.5, Lymphocytes # (Auto) 0.6L, Monocytes # (Auto) 0.4, Eosinophils # (Auto) 0.0, Basophils # (Auto) 0.0, Immature Granulocyte # (Auto) 0.0, Sodium Level 140, Potassium Level 4.1, Chloride Level 111H, Carbon Dioxide Level 18L, Anion Gap 11, Blood Urea Nitrogen 29H, Creatinine 1.06, Estimat Glomerular Filtration Rate 51, BUN/Creatinine Ratio 27, Glucose Level 91, Calcium Level 7.7L, Corrected Calcium 8.3L, Total Bilirubin 0.5, Aspartate Amino Transf (AST/SGOT) 51H, Alanine Aminotransferase (ALT/SGPT) 41, Alkaline Phosphatase 58, Total Protein 5.5L, Albumin 3.3, Tr iglycerides Level 67, Cholesterol Level 107, LDL Cholesterol Direct 67, VLDL Cholesterol 13, HDL Cholesterol 31L 07/29/23 03:35: White Blood Count 5.2, Red Blood Count 4.01, Hemoglobin 12.2, Hematocrit 37, Mean Corpuscular Volume 93, Mean Corpuscular Hemoglobin 30, Mean Corpuscular Hemoglobin Concent 33, Red Cell Distribution Width 12.4, Platelet Count 169, Mean Platelet Volume 11.6, Immature Granulocyte % (Auto) 0, Neutrophils (%) (Auto) 76H, Lymphocytes (%) (Auto) 14, Monocytes (%) (Auto) 10, Eosinophils (%) (Auto) 0, Basophils (%) (Auto) 0, Neutrophils # (Auto) 4.0, Lymphocytes # (Auto) 0.7L, Monocytes # (Auto) 0.5, Eosinophils # (Auto) 0.0, Basophils # (Auto) 0.0, Immature Granulocyte # (Auto) 0.0, Sodium Level 141, Potassium Level 4.2, Chloride Level 110H, Carbon Dioxide Level 20L, Anion Gap 11, Blood Urea Nitrogen 18, Creatinine 0.73, Estimat Glomerular Filtration Rate 81, BUN/Creatinine Ratio 25, Glucose Level 89, Calcium Level 8.2L, Corrected Calcium 8.7, Total Bilirubin 0.5, Aspartate Amino Transf (AST/SGOT) 49H, Alanine Aminotransferase (ALT/SGPT) 55, Alkaline Phosphatase 61, Total Protein 5.8L, Albumin 3.4 07/29/23 15:40: Glucometer 188H 07/31/23 05:53: White Blood Count 3.8L, Red Blood Count 4.20, Hemoglobin 13.0, Hematocrit 39, Mean Corpuscular Volume 93, Mean Corpuscular Hemoglobin 31, Mean Corpuscular Hemoglobin Concent 33, Red Cell Distribution Width 12.5, Platelet Count 206, Mean Platelet Volume 10.9, Immature Granulocyte % (Auto) 1, Neutrophils (%) (Auto) 72, Lymphocytes (%) (Auto) 17, Monocytes (%) (Auto) 10, Eosinophils (%) (Auto) 0, Basophils (%) (Auto) 0, Neutrophils # (Auto) 2.7, Lymphocytes # (Auto) 0.6L, Monocytes # (Auto) 0.4, Eosinophils # (Auto) 0.0, Basophils # (Auto) 0.0, Immature Granulocyte # (Auto) 0.0, Sodium Level 144, Potassium Level 4.3, Chloride Level 110H, Carbon Dioxide Level 23, Anion Gap 11, Blood Urea Nitrogen 26H, Creatinine 0.85, Estimat Glomerular Filtration Rate 67, BUN/Creatinine Ratio 31, Glucose Level 100, Calcium Level 8.5, Corrected Calcium 8.8, Total Bilirubin 0.8, Aspartate Amino Transf (AST/SGOT) 31, Alanine Aminotransferase (ALT/SGPT) 44, Alkaline Phosphatase 56, Total Protein 6.1L, Albumin 3.6 Microbiology 07/27/23 Blood Culture - Preliminary, Resulted No growth 07/27/23 Urine Culture - Final, Complete NO GROWTH Pending Labs Microbiology Date/Time Source Procedure Growth Status 07/27/23 18:41 Peripheral Rt Hand Blood Culture - Preliminary No growth Resulted 07/27/23 18:25 Peripheral Arm, Right Blood Culture - Preliminary No growth Resulted 07/27/23 16:34 Urine Clean Catch Urine Culture - Final NO GROWTH Complete Laboratory Tests 07/27/23 16:34: Urine Color YELLOW, Urine Clarity CLEAR, Urine pH 5.5, Urine Specific [place] 1.025, Urine Protein 1+, Urine Glucose (UA) NEGATIVE, Urine Ketones NEGATIVE, Urine Nitrite NEGATIVE, Urine Bilirubin 1+, Urine Urobilinogen 1.0, Urine Leukocyte Esterase NEGATIVE, Urine RBC (Auto) NEGATIVE, Urine RBC NONE, Urine WBC NONE, Urine Crystals NONE, Urine Bacteria TRACE, Urine Casts NONE, Urine Mucus NEGATIVE, Urine Culture Indicated NO 07/27/23 18:25: White Blood Count 4.4, Red Blood Count 4.18, Hemoglobin 13.1, Hematocrit 40, Mean Corpuscular Volume 97, Mean Corpuscular Hemoglobin 31, Mean Corpuscular Hemoglobin Concent 32, Red Cell Distribution Width 12.9, Platelet Count 155, Mean Platelet Volume 11.3, Immature Granulocyte % (Auto) 0, Neutrophils (%) (Auto) 78, Lymphocytes (%) (Auto) 11, Monocytes (%) (Auto) 10, Eosinophils (%) (Auto) 0, Basophils (%) (Auto) 0, Neutrophils # (Auto) 3.4, Lymphocytes # (Auto) 0.5, Monocytes # (Auto) 0.5, Eosinophils # (Auto) 0.0, Basophils # (Auto) 0.0, Immature Granulocyte # (Auto) 0.0, Prothrombin Time 13.5, INR Comment 1.0, Activated Partial Thromboplast Time 31, D-Dimer 1.04, Sodium Level 138, Potassium Level 4.9, Chloride Level 106, Carbon Dioxide Level 19, Anion Gap 13, Blood Urea Nitrogen 27, Creatinine 1.29, Estimat Glomerular Filtration Rate 41, BUN/Creatinine Ratio 21, Glucose Level 163, Lactic Acid Level 1.43, Calcium Level 8.2, Corrected Calcium 8.5, Total Bilirubin 0.7, Aspartate Amino Transf (AST/SGOT) 50, Alanine Aminotransferase (ALT/SGPT) 37, Alkaline Phosphatase 58, Troponin I < 0.028, Total Protein 6.2, Albumin 3.6 07/27/23 18:40: Glucometer 143 07/27/23 18:50: Influenza Type A (RT-PCR) Not Detected, Influenza Type B (RT-PCR) Not Detected, SARS-CoV-2 RNA (RT-PCR) Detected 07/28/23 04:06: White Blood Count 3.4, Red Blood Count 3.82, Hemoglobin 11.8, Hematocrit 36, Mean Corpuscular Volume 95, Mean Corpuscular Hemoglobin 31, Mean Corpuscular Hemoglobin Concent 33, Red Cell Distribution Width 13.0, Platelet Count 155, Mean Platelet Volume 11.5, Immature Granulocyte % (Auto) 0, Neutrophils (%) (Auto) 73, Lymphocytes (%) (Auto) 16, Monocytes (%) (Auto) 11, Eosinophils (%) (Auto) 0, Basophils (%) (Auto) 0, Neutrophils # (Auto) 2.5, Lymphocytes # (Auto) 0.6, Monocytes # (Auto) 0.4, Eosinophils # (Auto) 0.0, Basophils # (Auto) 0.0, Immature Granulocyte # (Auto) 0.0, Sodium Level 140, Potassium Level 4.1, Chloride Level 111, Carbon Dioxide Level 18, Anion Gap 11, Blood Urea Nitrogen 29, Creatinine 1.06, Estimat Glomerular Filtration Rate 51, BUN/Creatinine Ratio 27, Glucose Level 91, Calcium Level 7.7, Corrected Calcium 8.3, Total Bilirubin 0.5, Aspartate Amino Transf (AST/SGOT) 51, Alanine Aminotransferase (ALT/SGPT) 41, Alkaline Phosphatase 58, Total Protein 5.5, Albumin 3.3, Triglycerides Level 67, Cholesterol Level 107, LDL Cholesterol Direct 67, VLDL Cholesterol 13, HDL Cholesterol 31 07/29/23 03:35: White Blood Count 5.2, Red Blood Count 4.01, Hemoglobin 12.2, Hematocrit 37, Mean Corpuscular Volume 93, Mean Corpuscular Hemoglobin 30, Mean Corpuscular Hemoglobin Concent 33, Red Cell Distribution Width 12.4, Platelet Count 169, Mean Platelet Volume 11.6, Immature Granulocyte % (Auto) 0, Neutrophils (%) (Auto) 76, Lymphocytes (%) (Auto) 14, Monocytes (%) (Auto) 10, Eosinophils (%) (Auto) 0, Basophils (%) (Auto) 0, Neutrophils # (Auto) 4.0, Lymphocytes # (Auto) 0.7, Monocytes # (Auto) 0.5, Eosinophils # (Auto) 0.0, Basophils # (Auto) 0.0, Immature Granulocyte # (Auto) 0.0, Sodium Level 141, Potassium Level 4.2, Chloride Level 110, Carbon Dioxide Level 20, Anion Gap 11, Blood Urea Nitrogen 18, Creatinine 0.73, Estimat Glomerular Filtration Rate 81, BUN/Creatinine Ratio 25, Glucose Level 89, Calcium Level 8.2, Corrected Calcium 8.7, Total Bilirubin 0.5, Aspartate Amino Transf (AST/SGOT) 49, Alanine Aminotransferase (ALT/SGPT) 55, Alkaline Phosphatase 61, Total Protein 5.8, Albumin 3.4 07/29/23 15:40: Glucometer 188 07/31/23 05:53: White Blood Count 3.8, Red Blood Count 4.20, Hemoglobin 13.0, Hematocrit 39, Mean Corpuscular Volume 93, Mean Corpuscular Hemoglobin 31, Mean Corpuscular Hemoglobin Concent 33, Red Cell Distribution Width 12.5, Platelet Count 206, Mean Platelet Volume 10.9, Immature Granulocyte % (Auto) 1, Neutrophils (%) (Auto) 72, Lymphocytes (%) (Auto) 17, Monocytes (%) (Auto) 10, Eosinophils (%) (Auto) 0, Basophils (%) (Auto) 0, Neutrophils # (Auto) 2.7, Lymphocytes # (Auto) 0.6, Monocytes # (Auto) 0.4, Eosinophils # (Auto) 0.0, Basophils # (Auto) 0.0, Immature Granulocyte # (Auto) 0.0, Sodium Level 144, Potassium Level 4.3, Chloride Level 110, Carbon Dioxide Level 23, Anion Gap 11, Blood Urea Nitrogen 26, Creatinine 0.85, Estimat Glomerular Filtration Rate 67, BUN/Creatinine Ratio 31, Glucose Level 100, Calcium Level 8.5, Corrected Calcium 8.8, Total Bilirubin 0.8, Aspartate Amino Transf (AST/SGOT) 31, Alanine Aminotransferase (ALT/SGPT) 44, Alkaline Phosphatase 56, Total Protein 6.1, Albumin 3.6 Discharge Home Medications: Active Scripts Active Reported Constulose (Lactulose) 10 Gram/15 Ml Solution 15 Ml PO BID Vitamin B-12 (Cyanocobalamin (Vitamin B-12)) 1,000 Mcg Tablet 1,000 Mcg PO DAILY Tylenol (Acetaminophen) 325 Mg Tablet 650 Mg PO BID TAKES 2 (325MG) TABS Miralax (Polyethylene Glycol 3350) 17 Gram Powd.pack 17 Gm PO DAILY PRN Olanzapine 2.5 Mg Tablet 2.5 Mg PO BID Venlafaxine HCl 75 Mg Tab 75 Mg PO DAILY Quetiapine Fumarate 25 Mg Tablet 25 Mg PO TID Olmesartan Medoxomil 20 Mg Tablet 20 Mg PO DAILY Amlodipine Besylate 5 Mg Tablet 5 Mg PO DAILY Instructions to patient/family Please see electronic discharge instructions given to patient. ELIZABETH ADAN DO Jul 31, 2023 12:42
[2023-07-31 16:03] VITALS: BP 140/70
[2023-07-31 23:59] VITALS: BP 126/74
--- NOTE | 2023-08-01 05:03 | Discharge Summary ---
Diagnosis/Chief Complaint Date of Admission Jul 27, 2023 at 20:32 Date of Discharge Discharge Date: Jul 31, 2023 Discharge Diagnosis Assessment: COVID induced encephalopathy Dementia Agitation Hypertension Discharge Summary Discharge Physical Examination Allergies: Coded Allergies: No Known Drug Allergies (Unverified , 09/30/22) Vitals & I&Os Vital Signs Date Time Temp Pulse Resp B/P (MAP) Pulse Ox O2 Delivery O2 Flow Rate FiO2 08/01/23 11:42 08/01/23 08:00 Room Air 08/01/23 07:25 92 0.00 08/01/23 07:10 37.0 74 18 07/30/23 10:30 21 General Appearance: Alert Respiratory: Clear to Auscultation Cardiovascular: Regular Rate Hospital Course Was the Problem List Reviewed?: Yes Uneventful hospital course after she was admitted for COVID-19 infection. Confusion was due to COVID-19 superimposed on dementia. Overall she did well fully she will to regain function she is better familiar surroundings at assisted living. Labs (last 24 hrs) Laboratory Tests 07/27/23 16:34: Urine Color YELLOW, Urine Clarity CLEAR, Urine pH 5.5, Urine Specific [place] 1. 025H, Urine Protein 1+H, Urine Glucose (UA) NEGATIVE, Urine Ketones NEGATIVE, Urine Nitrite NEGATIVE, Urine Bilirubin 1+H, Urine Urobilinogen 1.0, Urine Leukocyte Esterase NEGATIVE, Urine RBC (Auto) NEGATIVE, Urine RBC NONE, Urine WBC NONE, Urine Crystals NONE, Urine Bacteria TRACE, Urine Casts NONE, Urine Mucus NEGATIVE, Urine Culture Indicated NO 07/27/23 18:25: White Blood Count 4.4, Red Blood Count 4.18, Hemoglobin 13.1, Hematocrit 40, Mean Corpuscular Volume 97, Mean Corpuscular Hemoglobin 31, Mean Corpuscular Hemoglobin Concent 32, Red Cell Distribution Width 12.9, Platelet Count 155, Mean Platelet Volume 11.3, Immature Granulocyte % (Auto) 0, Neutrophils (%) (Auto) 78H, Lymphocytes (%) (Auto) 11L, Monocytes (%) (Auto) 10, Eosinophils (%) (Auto) 0, Basophils (%) (Auto) 0, Neutrophils # (Auto) 3.4, Lymphocytes # (Auto) 0.5L, Monocytes # (Auto) 0.5, Eosinophils # (Auto) 0.0, Basophils # (Auto) 0.0, Immature Granulocyte # (Auto) 0.0, Prothrombin Time 13.5, INR Comment 1.0, Activated Partial Thromboplast Time 31, D-Dimer 1.04H, Sodium Level 138, Potassium Level 4.9, Chloride Level 106, Carbon Dioxide Level 19L, Anion Gap 13, Blood Urea Nitrogen 27H, Creatinine 1.29, Estimat Glomerular Filtration Rate 41, BUN/Creatinine Ratio 21, Glucose Level 163H, Lactic Acid Level 1.43, Calcium Lev el 8.2L, Corrected Calcium 8.5, Total Bilirubin 0.7, Aspartate Amino Transf (AST/SGOT) 50H, Alanine Aminotransferase (ALT/SGPT) 37, Alkaline Phosphatase 58, Troponin I < 0.028, Total Protein 6.2L, Albumin 3.6 07/27/23 18:40: Glucometer 143H 07/27/23 18:50: Influenza Type A (RT-PCR) Not Detected, Influenza Type B (RT-PCR) Not Detected, SARS-CoV-2 RNA (RT-PCR) DetectedH 07/28/23 04:06: White Blood Count 3.4L, Red Blood Count 3.82, Hemoglobin 11.8, Hematocrit 36, Mean Corpuscular Volume 95, Mean Corpuscular Hemoglobin 31, Mean Corpuscular Hemoglobin Concent 33, Red Cell Distribution Width 13.0, Platelet Count 155, Mean Platelet Volume 11.5, Immature Granulocyte % (Auto) 0, Neutrophils (%) (Auto) 73, Lymphocytes (%) (Auto) 16, Monocytes (%) (Auto) 11, Eosinophils (%) (Auto) 0, Basophils (%) (Auto) 0, Neutrophils # (Auto) 2.5, Lymphocytes # (Auto) 0.6L, Monocytes # (Auto) 0.4, Eosinophils # (Auto) 0.0, Basophils # (Auto) 0.0, Immature Granulocyte # (Auto) 0.0, Sodium Level 140, Potassium Level 4.1, Chloride Level 111H, Carbon Dioxide Level 18L, Anion Gap 11, Blood Urea Nitrogen 29H, Creatinine 1.06, Estimat Glomerular Filtration Rate 51, BUN/Creatinine Ratio 27, Glucose Level 91, Calcium Level 7.7L, Corrected Calcium 8.3L, Total Bilirubin 0.5, Aspartate Amino Transf (AST/SGOT) 51H, Alanine Aminotransferase (ALT/SGPT) 41, Alkaline Phosphatase 58, Total Protein 5.5L, Albumin 3.3, Triglycerides Level 67, Cholesterol Level 107, LDL Cholesterol Direct 67, VLDL Cholesterol 13, HDL Cholesterol 31L 07/29/23 03:35: White Blood Count 5.2, Red Blood Count 4.01, Hemoglobin 12.2, Hematocrit 37, Mean Corpuscular Volume 93, Mean Corpuscular Hemoglobin 30, Mean Corpuscular Hemoglobin Concent 33, Red Cell Distribution Width 12.4, Platelet Count 169, Mean Platelet Volume 11.6, Immature Granulocyte % (Auto) 0, Neutrophils (%) (Auto) 76H, Lymphocytes (%) (Auto) 14, Monocytes (%) (Auto) 10, Eosinophils (%) (Auto) 0, Basophils (%) (Auto) 0, Neutrophils # (Auto) 4.0, Lymphocytes # (Auto) 0.7L, Monocytes # (Auto) 0.5, Eosinophils # (Auto) 0.0, Basophils # (Auto) 0.0, Immature Granulocyte # (Auto) 0.0, Sodium Level 141, Potassium Level 4.2, Chloride Level 110H, Carbon Dioxide Level 20L, Anion Gap 11, Blood Urea Nitrogen 18, Creatinine 0.73, Estimat Glomerular Filtration Rate 81, BUN/Creatinine Ratio 25, Glucose Level 89, Calcium Level 8.2L, Corrected Calcium 8.7, Total Bilirubin 0.5, Aspartate Amino Transf (AST/SGOT) 49H, Alanine Aminotransferase (ALT/SGPT) 55, Alkaline Phosphatase 61, Total Protein 5.8L, Albumin 3.4 07/29/23 15:40: Glucometer 188H 07/31/23 05:53: White Blood Count 3.8L, Red Blood Count 4.20, Hemoglobin 13.0, Hematocrit 39, Mean Corpuscular Volume 93, Mean Corpuscular Hemoglobin 31, Mean Corpuscular Hemoglobin Concent 33, Red Cell Distribution Width 12.5, Platelet Count 206, Mean Platelet Volume 10.9, Immature Granulocyte % (Auto) 1, Neutrophils (%) (Auto) 72, Lymphocytes (%) (Auto) 17, Monocytes (%) (Auto) 10, Eosinophils (%) (Auto) 0, Basophils (%) (Auto) 0, Neutrophils # (Auto) 2.7, Lymphocytes # (Auto) 0.6L, Monocytes # (Auto) 0.4, Eosinophils # (Auto) 0.0, Basophils # (Auto) 0.0, Immature Granulocyte # (Auto) 0.0, Sodium Level 144, Potassium Level 4.3, Chloride Level 110H, Carbon Dioxide Level 23, Anion Gap 11, Blood Urea Nitrogen 26H, Creatinine 0.85, Estimat Glomerular Filtration Rate 67, BUN/Creatinine Ratio 31, Glucose Level 100, Calcium Level 8.5, Corrected Calcium 8.8, Total Bilirubin 0.8, Aspartate Amino Transf (AST/SGOT) 31, Alanine Aminotransferase (ALT/SGPT) 44, Alkaline Phosphatase 56, Total Protein 6.1L, Albumin 3.6 08/01/23 05:47: White Blood Count 4.5, Red Blood Count 4.20, Hemoglobin 13.0, Hematocrit 38, Mean Corpuscular Volume 91, Mean Corpuscular Hemoglobin 31, Mean Corpuscular Hemoglobin Concent 34, Red Cell Distribution Width 12.2, Platelet Count 236, Mean Platelet Volume 11.2, Immature Granulocyte % (Auto) 1, Neutrophils (%) (Auto) 59, Lymphocytes (%) (Auto) 24, Monocytes (%) (Auto) 15H, Eosinophils (%) (Auto) 0, Basophils (%) (Auto) 0, Neutrophils # (Auto) 2.7, Lymphocytes # (Auto) 1.1, Monocytes # (Auto) 0.7, Eosinophils # (Auto) 0.0, Basophils # (Auto) 0.0, Immature Granulocyte # (Auto) 0.0, Sodium Level 141, Potassium Level 3.5L, Chloride Level 108H, Carbon Dioxide Level 23, Anion Gap 10, Blood Urea Nitrogen 33H, Creatinine 0.85, Estimat Glomerular Filtration Rate 67, BUN/Creatinine Ratio 39, Glucose Level 84, Calcium Level 8.5, Corrected Calcium 8.9, Total Bilirubin 0.8, Aspartate Amino Transf (AST/SGOT) 69H, Alanine Aminotransferase (ALT/SGPT) 97H, Alkaline Phosphatase 59, Total Protein 5.7L, Albumin 3.5 Microbiology 07/27/23 Blood Culture - Preliminary, Resulted No growth 07/27/23 Urine Culture - Final, Complete NO GROWTH Pending Labs Microbiology Date/Time Source Procedure Growth Status 07/27/23 18:41 Peripheral Rt Hand Blood Culture - Preliminary No growth Resulted 07/27/23 18:25 Peripheral Arm, Right Blood Culture - Preliminary No growth Resulted 07/27/23 16:34 Urine Clean Catch Urine Culture - Final NO GROWTH Complete Laboratory Tests 07/27/23 16:34: Urine Color YELLOW, Urine Clarity CLEAR, Urine pH 5.5, Urine Specific [place] 1.025, Urine Protein 1+, Urine Glucose (UA) NEGATIVE, Urine Ketones NEGATIVE, Urine Nitrite NEGATIVE, Urine Bilirubin 1+, Urine Urobilinogen 1.0, Urine Leukocyte Esterase NEGATIVE, Urine RBC (Auto) NEGATIVE, Urine RBC NONE, Urine WBC NONE, Urine Crystals NONE, Urine Bacteria TRACE, Urine Casts NONE, Urine Mucus NEGATIVE, Urine Culture Indicated NO 07/27/23 18:25: White Blood Count 4.4, Red Blood Count 4.18, Hemoglobin 13.1, Hematocrit 40, Mean Corpuscular Volume 97, Mean Corpuscular Hemoglobin 31, Mean Corpuscular Hemoglobin Concent 32, Red Cell Distribution Width 12.9, Platelet Count 155, Mean Platelet Volume 11.3, Immature Granulocyte % (Auto) 0, Neutrophils (%) (Auto) 78, Lymphocytes (%) (Auto) 11, Monocytes (%) (Auto) 10, Eosinophils (%) (Auto) 0, Basophils (%) (Auto) 0, Neutrophils # (Auto) 3.4, Lymphocytes # (Auto) 0.5, Monocytes # (Auto) 0.5, Eosinophils # (Auto) 0.0, Basophils # (Auto) 0.0, Immature Granulocyte # (Auto) 0.0, Prothrombin Time 13.5, INR Comment 1.0, Activated Partial Thromboplast Time 31, D-Dimer 1.04, Sodium Level 138, Potassium Level 4.9, Chloride Level 106, Carbon Dioxide Level 19, Anion Gap 13, Blood Urea Nitrogen 27, Creatinine 1.29, Estimat Glomerular Filtration Rate 41, BUN/Creatinine Ratio 21, Glucose Level 163, Lactic Acid Level 1.43, Calcium Level 8.2, Corrected Calcium 8.5, Total Bilirubin 0.7, Aspartate Amino Transf (AST/SGOT) 50, Alanine Aminotransferase (ALT/SGPT) 37, Alkaline Phosphatase 58, Troponin I < 0.028, Total Protein 6.2, Albumin 3.6 07/27/23 18:40: Glucometer 143 07/27/23 18:50: Influenza Type A (RT-PCR) Not Detected, Influenza Type B (RT-PCR) Not Detected, SARS-CoV-2 RNA (RT-PCR) Detected 07/28/23 04:06: White Blood Count 3.4, Red Blood Count 3.82, Hemoglobin 11.8, Hematocrit 36, Mean Corpuscular Volume 95, Mean Corpuscular Hemoglobin 31, Mean Corpuscular Hemoglobin Concent 33, Red Cell Distribution Width 13.0, Platelet Count 155, Mean Platelet Volume 11.5, Immature Granulocyte % (Auto) 0, Neutrophils (%) (Auto) 73, Lymphocytes (%) (Auto) 16, Monocytes (%) (Auto) 11, Eosinophils (%) (Auto) 0, Basophils (%) (Auto) 0, Neutrophils # (Auto) 2.5, Lymphocytes # (Auto) 0.6, Monocytes # (Auto) 0.4, Eosinophils # (Auto) 0.0, Basophils # (Auto) 0.0, Immature Granulocyte # (Auto) 0.0, Sodium Level 140, Potassium Level 4.1, Chloride Level 111, Carbon Dioxide Level 18, Anion Gap 11, Blood Urea Nitrogen 29, Creatinine 1.06, Estimat Glomerular Filtration Rate 51, BUN/Creatinine Ratio 27, Glucose Level 91, Calcium Level 7.7, Corrected Calcium 8.3, Total Bilirubin 0.5, Aspartate Amino Transf (AST/SGOT) 51, Alanine Aminotransferase (ALT/SGPT) 41, Alkaline Phosphatase 58, Total Protein 5.5, Albumin 3.3, Triglycerides Level 67, Cholesterol Level 107, LDL Cholesterol Direct 67, VLDL Cholesterol 13, HDL Cholesterol 31 07/29/23 03:35: White Blood Count 5.2, Red Blood Count 4.01, Hemoglobin 12.2, Hematocrit 37, Mean Corpuscular Volume 93, Mean Corpuscular Hemoglobin 30, Mean Corpuscular Hemoglobin Concent 33, Red Cell Distribution Width 12.4, Platelet Count 169, Mean Platelet Volume 11.6, Immature Granulocyte % (Auto) 0, Neutrophils (%) (Auto) 76, Lymphocytes (%) (Auto) 14, Monocytes (%) (Auto) 10, Eosinophils (%) (Auto) 0, Basophils (%) (Auto) 0, Neutrophils # (Auto) 4.0, Lymphocytes # (Auto) 0.7, Monocytes # (Auto) 0.5, Eosinophils # (Auto) 0.0, Basophils # (Auto) 0.0, Immature Granulocyte # (Auto) 0.0, Sodium Level 141, Potassium Level 4.2, Chloride Level 110, Carbon Dioxide Level 20, Anion Gap 11, Blood Urea Nitrogen 18, Creatinine 0.73, Estimat Glomerular Filtration Rate 81, BUN/Creatinine Ratio 25, Glucose Level 89, Calcium Level 8.2, Corrected Calcium 8.7, Total Bilirubin 0.5, Aspartate Amino Transf (AST/SGOT) 49, Alanine Aminotransferase (ALT/SGPT) 55, Alkaline Phosphatase 61, Total Protein 5.8, Albumin 3.4 07/29/23 15:40: Glucometer 188 07/31/23 05:53: White Blood Count 3.8, Red Blood Count 4.20, Hemoglobin 13.0, Hematocrit 39, Mean Corpuscular Volume 93, Mean Corpuscular Hemoglobin 31, Mean Corpuscular Hemoglobin Concent 33, Red Cell Distribution Width 12.5, Platelet Count 206, Mean Platelet Volume 10.9, Immature Granulocyte % (Auto) 1, Neutrophils (%) (Auto) 72, Lymphocytes (%) (Auto) 17, Monocytes (%) (Auto) 10, Eosinophils (%) (Auto) 0, Basophils (%) (Auto) 0, Neutrophils # (Auto) 2.7, Lymphocytes # (Auto) 0.6, Monocytes # (Auto) 0.4, Eosinophils # (Auto) 0.0, Basophils # (Auto) 0.0, Immature Granulocyte # (Auto) 0.0, Sodium Level 144, Potassium Level 4.3, Chloride Level 110, Carbon Dioxide Level 23, Anion Gap 11, Blood Urea Nitrogen 26, Creatinine 0.85, Estimat Glomerular Filtration Rate 67, BUN/Creatinine Ratio 31, Glucose Level 100, Calcium Level 8.5, Corrected Calcium 8.8, Total Bilirubin 0.8, Aspartate Amino Transf (AST/SGOT) 31, Alanine Aminotransferase (ALT/SGPT) 44, Alkaline Phosphatase 56, Total Protein 6.1, Albumin 3.6 08/01/23 05:47: White Blood Count 4.5, Red Blood Count 4.20, Hemoglobin 13.0, Hematocrit 38, Mean Corpuscular Volume 91, Mean Corpuscular Hemoglobin 31, Mean Corpuscular Hemoglobin Concent 34, Red Cell Distribution Width 12.2, Platelet Count 236, Mean Platelet Volume 11.2, Immature Granulocyte % (Auto) 1, Neutrophils (%) (Auto) 59, Lymphocytes (%) (Auto) 24, Monocytes (%) (Auto) 15, Eosinophils (%) (Auto) 0, Basophils (%) (Auto) 0, Neutrophils # (Auto) 2.7, Lymphocytes # (Auto) 1.1, Monocytes # (Auto) 0.7, Eosinophils # (Auto) 0.0, Basophils # (Auto) 0.0, Immature Granulocyte # (Auto) 0.0, Sodium Level 141, Potassium Level 3.5, Chloride Level 108, Carbon Dioxide Level 23, Anion Gap 10, Blood Urea Nitrogen 33, Creatinine 0.85, Estimat Glomerular Filtration Rate 67, BUN/Creatinine Ratio 39, Glucose Level 84, Calcium Level 8.5, Corrected Calcium 8.9, Total Bilirubin 0.8, Aspartate Amino Transf (AST/SGOT) 69, Alanine Aminotransferase (ALT/SGPT) 97, Alkaline Phosphatase 59, Total Protein 5.7, Albumin 3.5 Discharge Home Medications: Active Scripts Active Reported Constulose (Lactulose) 10 Gram/15 Ml Solution 15 Ml PO BID Vitamin B-12 (Cyanocobalamin (Vitamin B-12)) 1,000 Mcg Tablet 1,000 Mcg PO DAILY Tylenol (Acetaminophen) 325 Mg Tablet 650 Mg PO BID TAKES 2 (325MG) TABS Miralax (Polyethylene Glycol 3350) 17 Gram Powd.pack 17 Gm PO DAILY PRN Olanzapine 2.5 Mg Tablet 2.5 Mg PO BID Venlafaxine HCl 75 Mg Tab 75 Mg PO DAILY Quetiapine Fumarate 25 Mg Tablet 25 Mg PO TID Olmesartan Medoxomil 20 Mg Tablet 20 Mg PO DAILY Amlodipine Besylate 5 Mg Tablet 5 Mg PO DAILY Instructions to patient/family Please see electronic discharge instructions given to patient. ELIZABETH ADAN DO Aug 01, 2023 05:03
[2023-08-01 06:07] LABS: BASOPHILS % (AUTO) 0 % (0-10); EOSINOPHILS % (AUTO) 0 % (0-10); HEMATOCRIT 38 % (35-52); LYMPHOCYTES # (AUTO) 1.1 10^3/uL (1.0-4.0); LYMPHOCYTES % (AUTO) 24 % (12-44); MEAN CORPUSCULAR HEMOGLOBIN 31 pg (25-34); MEAN CORPUSCULAR HGB CONC 34 g/dL (32-36); MEAN CORPUSCULAR VOLUME 91 fL (80-99); MEAN PLATELET VOLUME 11.2 fL (9.0-12.2); MONOCYTES # (AUTO) 0.7 10^3/uL (0.0-1.0); MONOCYTES % (AUTO) 15 % (0-12); NEUTROPHILS # (AUTO) 2.7 10^3/uL (1.8-7.8); NEUTROPHILS % (AUTO) 59 % (42-75); PLATELET COUNT 236 10^3/uL (130-400); WHITE BLOOD COUNT 4.5 10^3/uL (4.3-11.0)
[2023-08-01 06:24] LABS: ALBUMIN 3.5 GM/DL (3.2-4.5); POTASSIUM 3.5 MMOL/L (3.6-5.0)
[2023-08-01 06:26] LABS: CALCIUM 8.5 MG/DL (8.5-10.1)
[2023-08-01 06:27] LABS: TOTAL PROTEIN 5.7 GM/DL (6.4-8.2)
[2023-08-01 06:29] LABS: BILIRUBIN,TOTAL 0.8 MG/DL (0.1-1.0)
[2023-08-01 06:30] LABS: CREATININE SERUM 0.85 MG/DL (0.60-1.30)
[2023-08-01 07:10] VITALS: BP 147/90
[2023-08-01] MEDS: QUEtiapine IMMEDIATE RELEASE 25 MG TABLET PO SCH (08:48)
[2023-08-01] MEDS: DOCUSATE SODIUM 100 MG CAPSULE PO SCH (08:48)
[2023-08-01] MEDS: amLODIPine 5 MG TABLET PO SCH (08:48)
[2023-08-01] MEDS: ENOXAPARIN 80 MG/0.8 ML SYRINGE SC SCH (08:48)
[2023-08-01] MEDS: OLANZapine 2.5 MG TABLET PO SCH (08:48)
[2023-08-01] MEDS: LOSARTAN 100 MG TABLET PO SCH (08:48)
[2023-08-01] MEDS: dexAMETHasone 6 MG TABLET PO SCH (08:48)
[2023-08-01] MEDS: SENNOSIDES 8.6 MG TABLET PO SCH (08:48)
== END 2023-08-01 11:04 ==
LOC: EDUNIT# 18:05 → ER 18:07 → ICU 20:32 → UNDOADMOB 20:32 → ICU 20:44 → 4TH 07-29 16:13 → UNDODISOB 08-01 11:43
PROVIDERS: ADMIT Internal Medicine; ATTEND Internal Medicine
DX: U07.1 COVID-19 (principal); J96.01 Acute respiratory failure with hypoxia; F03.C0 Unspecified dementia, severe, without behavioral disturbance, psychotic disturbance, mood disturbance, and anxiety; G93.49 Other encephalopathy; I10 Essential (primary) hypertension; R45.1 Restlessness and agitation; J12.82 Pneumonia due to coronavirus disease 2019; I16.0 Hypertensive urgency; R41.82 Altered mental status, unspecified
CPT/HCPCS: 51702; 70450; 71045 ×2; 80053 ×5; 80061; 81000; 82947 ×2; 83605; 84484; 85025 ×5; 85379; 85610; 85730; 87040; 87088; 87636; 93005; 93041; 94760 ×2; 96366; 96372 ×6; 96375; 96376 ×2; 97116; 97162; 99284; G0378 ×2; 36415